=== PATIENT | male | born 1960 | race Caucasian/White ===

== ENCOUNTER 2020-08-03 14:43 | Outpatient (RCR) | payer BC, SELFPAY | END 2020-10-16 23:59 | LOC: IMMUN 14:43 | PROVIDERS: Visit Provider Family Medicine | DX: Z23 Encounter for immunization (principal) | CPT/HCPCS: 0001A; 0002A; 91300 ==

== ENCOUNTER 2021-05-24 08:58 | Emergency (ER) | payer BC, SELFPAY ==
[2021-05-24 08:59] VITALS: BP 142/88; PULSE 75; RESP 18; TEMP 36.6; O2SAT 99; BMI 32.5
--- NOTE | 2021-05-24 09:56 | EX.ED.UPPERE ---
HPI History of Present Illness Chief Complaint: Laceration Detail of Chief Complaint: Laceration left thumb 2 weeks ago now redness and drainage Informant: patient Occured/Mechanism Mechanism/Context: Yes injury Onset/Context/Timing Onset: Yesterday (Redness drainage left thumb) and Weeks (Injury occurred 2 days ago) Context: Sudden Onset Timing: Continuous Location: Left thumb Current Severity: Mild Maximum Severity: Mild Worsened by: Injury Relieved by: Nothing Associated Symptoms Associated Symptoms: Negative for Parasthesia, Weakness and Loss of Funtion Narrative Narrative: Patient is a 60-year-old enrmg-lzdy-lwtevaqc male who presents because of injury with possible infection left thumb. He was sent from the urgent care. He was told he needs IV antibiotics. He denies fever, chills night sweats. He states this is happened before. He sustained a laceration dorsal surface left thumb over the IP joint. He states that his skin peeled off and now it is red with predominantly serous drainage with slight greenish color. He denies fever, chills night sweats. He denies redness going towards his axilla. He denies pain in the elbow or axilla. He denies history of diabetes. He is not immune suppressed. He has no antibiotic allergies. Patient states he washes hands several times a day. Tetanus Immunization: 5-10 years Prior similar symptoms: Yes Recent Illness/Hospitalization: No [facility] Medical History Arthritis High cholesterol Home Medications doxycycline monohydrate 100 mg PO BID #10 capsule 05/24/21 [Rx Last Taken Unknown] magnesium 250 mg PO QHS 05/24/21 [History Last Taken Unknown] magnesium 500 mg PO BREAKFAST 05/24/21 [History Last Taken Unknown] Allergy/AdvReac Type Severity Reaction Status Date / Time procaine [From Novocain] Allergy Anaphylaxis Verified 05/24/21 09:03 Social History (Updated 05/24/21 @ 09:[address] Jhonatan Osborne MD) household members: spouse Smoking Status: Current every day smoker tobacco type: e-cigarettes substance use type: does not use ROS ROS ED Constitutional Constitutional ED: Denies chills, fever(s), subjective, sweats or weight loss Integumentary Reports rash; Denies abscess or Abrasions Neurologic Neurologic: Denies paresthesias or weakness Endocrine Endocrinology: Denies polydipsia, polyphagia or polyuria Hematologic/Lymphatic Hematologic/Lymphatic: Denies easy bleeding or easy bruising EXAM Physical Exam Const Vital Signs: 05/24/21 08:59 Temperature 97.9 F Temperature Source Temporal Pulse Rate 75 Respiratory Rate 18 Blood Pressure 142/88 H Blood Pressure Mean 106 Pulse Ox 99 Oxygen Delivery Method Room Air Positive well nourished, well developed and obese General Appearance ED: well developed and NAD Nutritional Appearance: obese HEENT normocephalic and atraumatic Eyes PERRL and EOMs intact bilaterally Resp normal respiratory effort Cardio regular rate and regular rhythm Extremity full ROM; Negative for normal to inspection Extremity Narrative: Patient has dyshidrotic eczema both hands. There is evidence of a recent laceration. The skin has desquamated over the dorsal surface left thumb involving the distal and midportion of the thumb. There is slight drainage noted. There is no lymphangitis. There is no epitrochlear extra lymphadenopathy. Presently there is no obvious drainage. It is inflamed. General Extremety ED: Yes other findings; Negative for edema General Extremity: other findings; Negative for edema Neuro oriented x3 and CN's II-XII intact bilaterally Sensorium / Orientation: alert Psych mental status grossly normal Skin Skin Narrative: Dermatologic exam documented/incorporated with extremity exam Lesions: No no lesions Rashes: No no rashes and rashes noted MDM MDM MDM Narrative Medical decision making narrative: Patient has dyshidrotic eczema with recent injury. This appears to be inflamed and suggestive of contact dermatitis. Since patient is describing colored drainage will place on short course of antibiotics and have him follow-up with his primary care physician for wound check in 2 to 3 days. He has been instructed use Eucerin cream because of his exceedingly dry skin/dyshidrotic eczema. Discharge Plan Triage Chief Complaint: Laceration ED Provider: Jhonatan Osborne Dx/Rx/DC Orders Clinical Impression: Cellulitis of left thumb, Dyshidrotic eczema Instructions: ED Atopic Dermatitis (Adult), ED Cellulitis Prescriptions: New doxycycline monohydrate 100 MG capsule 100 mg PO BID Qty: 10 RF: 0 No Action magnesium 500 mg Tablet 500 mg PO BREAKFAST RF: 0 magnesium 250 mg Tablet 250 mg PO QHS RF: 0 Primary Care Provider: Care Physician,No Primary Referrals: Oleghe,Efewongbe, MD [STAFF PHYSICIAN] - Care Physician,No Primary [Primary Care Provider] - Activity Restrictions/Additional Instructions: 1. Take antibiotics till gone 2. If you develop a red streak going towards your armpit return 3. Apply Eucerin lotion 3 times a day. Recommend wearing white gloves when you go to bed. Disposition Disposition: Home, Self Care
[2021-05-24] MEDS: Doxycycline 100 MG CAPSULE PO (10:20)
== END 2021-05-24 10:21 | disposition home or self-care (01) ==
PROVIDERS: Emergency Provider Emergency Medicine; Visit Provider Emergency Medicine
DX: L03.012 Cellulitis of left finger (principal); L30.1 Dyshidrosis [pompholyx]; F17.290 Nicotine dependence, other tobacco product, uncomplicated; E66.9 Obesity, unspecified
CPT/HCPCS: 99283

== ENCOUNTER 2022-10-04 07:23 | Inpatient (IN) | payer BC, SELFPAY ==
[2022-10-04] VITALS (13 sets, daily range): BP systolic 116–162; BP diastolic 60–104; PULSE 54–81; RESP 14–20; TEMP 36.4–36.9; O2SAT 96–100; BMI 34.4
--- NOTE | 2022-10-04 07:33 | EKG12_ITS ---
Test Reason : CP Blood Pressure : / mmHG Vent. Rate : 076 BPM Atrial Rate : 076 BPM P-R Int : 180 ms QRS Dur : 086 ms QT Int : 370 ms P-R-T Axes : 068 034 042 degrees QTc Int : 416 ms Normal sinus rhythm Low voltage QRS Borderline ECG Confirmed by CHARLES BATES, TICO ([id number]), editor farm journal REN CHRISTY ([id number]) on 10/07/2022 10:28:11 AM Referred By: Confirmed By:TICO SOTO MD
--- NOTE | 2022-10-04 07:34 | RAD_ITS ---
HISTORY: chest pain. TECHNIQUE: XR Chest 2 Views. COMPARISON: None. FINDINGS: CARDIOMEDIASTINAL BORDERS: Cardiac silhouette within normal limits in size. Mediastinal contour unremarkable. LUNGS: Radiographically clear. PLEURA: No pleural effusion or pneumothorax seen. OSSEOUS STRUCTURES: Unremarkable. RAD/Chest PA and Lateral IMPRESSION: No acute cardiopulmonary process identified. Electronically Signed: Svetlana Al MD at 8:13 EDT ,
--- NOTE | 2022-10-04 07:34 | ED.VIS.CHEST ---
HPI History of Present Illness Chief Complaint: Chest Pain Detail of Chief Complaint: Anterior upper mid chest pressure Informant: patient Onset/Context/Timing Onset: Hours (0.75) Activity at onset: sudden Timing: Continuous Quality: Positive for Pressure Location: - (Central upper anterior chest with radiation to to the left shoulder and arm and discomfort in the left wrist) Current Severity: Mild Maximum Severity: Moderate Worsened By: Nothing Relieved By: Nothing Associated Symptoms: Positive for Nausea; Negative for Vomiting, Diaphoresis (Patient states he felt warm but was not diaphoretic.), Dyspnea, Cough, Fever, Lightheadedness, Acid Reflux or Palpitations Narrative Narrative: Patient is a 62-year-old male with history of hypercholesterolemia who was a smoker. He quit 10 years ago. He presents with anterior upper central chest discomfort radiating to left shoulder and arm. The discomfort in his left upper extremity is described as aching. He also has numbness in his left wrist. He did report nausea without diaphoresis, shortness of breath. Patient denies prior episode. Patient denies dyspnea or chest discomfort the preceding 1 to 2 weeks. Patient denies recent upper respiratory tract infectious symptoms. Patient denies history of VTE and has no risk factors. Denies leg pain, swelling discoloration. He denies symptoms of claudication. He denies epigastric pain, black or maroon-colored stool. He denies history of hiatal hernia, reflux or peptic ulcer disease. He states his grandpa father on the operating table having cataract surgery at the age of 80 and father of [place] at the age of 67. Prior Similar Symptoms: No Recent Illness/Hospitalization: No CVD Risk Factors: Positive for Hypercholesterolemia; Negative for Hypertension, Diabetes, Family History 1' </=55 or Smoking (Patient did quit 10 years ago.) PE Risk Factors: Negative for Recent Travel/Surgery, Recent Immobilization, Prior DVT or PE, Cancer or OCP + Smoking + >/=35 TAD Risk Factors: Negative for Marfan's Syndrome, Hypertension or Family History PFSH PFSH Medical History Arthritis Diverticulosis of sigmoid colon Hypercholesterolemia Tobacco user Home Medications doxycycline monohydrate 100 mg capsule 100 mg PO BID #10 CAPSULES 05/24/21 [Rx Last Taken Unknown] magnesium 250 mg tablet 250 mg PO QHS 05/24/21 [History Last Taken Unknown] magnesium 500 mg tablet 500 mg PO BREAKFAST 05/24/21 [History Last Taken Unknown] atorvastatin 10 mg tablet 10 mg PO DAILY 10/04/22 [History Last Taken Unknown] tobramycin 0.3 %-dexamethasone 0.1 % eye drops,suspension drp 10/04/22 [History Last Taken Unknown] Allergy/AdvReac Type Severity Reaction Status Date / Time procaine [From Novocain] Allergy Anaphylaxis Verified 10/04/22 07:26 Family History Grandfather Myocardial infarction Father Myocardial infarction Social History (Updated 10/04/22 @ 14:[address] Irma Guy DO) household members: spouse housing: house current occupational status: retired Smoking Status: Current every day smoker tobacco type: e-cigarettes how long ago did patient quit smoking: Used to smoke 2 packs of regular cigarettes every day up until about 10 yea alcohol intake: never substance use type: does not use ROS ROS ED Constitutional Constitutional ED: Denies chills, fever(s), subjective, sweats or weight loss Eyes Eyes: Denies blurry vision, change in vision or diplopia ENT ENT ED: Denies ear pain, rhinorrhea or sore throat Cardiovascular Cardiovascular: Reports as per HPI; Denies orthopnea or paroxysmal nocturnal dyspnea Respiratory/Chest Respiratory/Chest: Denies cough, dyspnea, dyspnea on exertion, orthopnea or paroxysmal nocturnal dyspnea Gastrointestinal Gastrointestinal: Denies abdominal pain, diarrhea, melena or vomiting Genitourinary Genitourinary ED: Denies dysuria, hematuria or urinary frequency Musculoskeletal Musculoskeletal: Denies arthralgias, back pain, myalgias or neck pain Integumentary Denies rash Neurologic Neurologic: Denies headache(s), paresthesias or weakness Psychiatric Psychiatric: Denies anxiety or depression Hematologic/Lymphatic Hematologic/Lymphatic: Denies easy bleeding or easy bruising EXAM Physical Exam Const Vital Signs: 10/04/22 07:25 10/04/22 07:40 10/04/22 08:20 Temperature 97.8 F Temperature Source Temporal Pulse Rate 81 Respiratory Rate 18 Blood Pressure 162/104 H 141/93 H Blood Pressure Mean 123 109 Pulse Ox 97 99 Oxygen Delivery Method Room Air Room Air 10/04/22 08:57 10/04/22 09:10 10/04/22 10:51 Temperature Temperature Source Pulse Rate 65 66 57 L Respiratory Rate 17 16 14 Blood Pressure 139/86 H 139/86 H 152/96 H Blood Pressure Mean 103 103 114 Pulse Ox 99 99 99 Oxygen Delivery Method Room Air Room Air Room Air 10/04/22 11:02 10/04/22 12:00 10/04/22 13:00 Temperature Temperature Source Pulse Rate 62 80 62 Respiratory Rate 17 20 H 18 Blood Pressure 152/96 H 119/60 124/83 H Blood Pressure Mean 114 79 96 Pulse Ox 100 99 Oxygen Delivery Method Room Air Room Air Most recent blood pressure is markedly better than time of arrival. Positive well nourished, well developed and obese; Negative for cachectic, contractures or unkempt General Appearance ED: well developed and NAD; Negative for unkempt, cachectic, contractures or pallor Nutritional Appearance: obese; Negative for cachectic HEENT Reports moist mucous membranes HEENT Narrative: Nares patent. Mucosa moist. Posterior pharynx unremarkable. normocephalic and atraumatic Eyes PERRL and EOMs intact bilaterally Eyes Narrative: She has evidence of conjunctivitis on the left. There is also evidence of what appears to be contact dermatitis periorbital region. There is no evidence or concern for preseptal cellulitis or orbital cellulitis. Patient states she was initially seen at urgent care treated with antibiotic and recently saw his filling separator who prescribed tobramycin and prednisolone. General Eye ED: Negative for pale conjunctiva or scleral icterus Neck no lymphadenopathy, supple and no JVD Chest Wall inspection of chest normal and palpation of chest normal Resp normal respiratory effort and clear to auscultation bilaterally Cardio regular rate, regular rhythm, S1 normal heart sound, S2 normal heart sound and no murmurs Peripheral Pulses: brachial pulses present bilateral, radial pulses present bilateral and dorsalis pedis pulses present bilateral 1+ GI normal to inspection, nondistended, normoactive bowel sounds, soft to palpation, non-tender, non-distended and no masses; Negative for hepatosplenomegaly Back/Spine no CVA tenderness Extremity normal to inspection Extremity Narrative: There is no asymmetry, swelling, discoloration, leg vein distention, palpable cords or tenderness along the distribution of the deep venous system. Neuro oriented x3 and CN's II-XII intact bilaterally Sensorium / Orientation: awake and alert Psych mental status grossly normal Appearance: Negative for unkempt Skin no rashes or lesions noted and no wounds General Skin Exam: Negative for jaundice or pallor Heart Score History: Moderately Suspicious ECG: Normal Age: >45 - <65 years Risk Factors: 1 or 2 Risk Factors Score: 3 MDM MDM MDM Narrative Medical decision making narrative: Differential diagnosis would include cardiac versus noncardiac etiology of his pain. Noncardiac etiology would be hiatal hernia, reflux, peptic ulcer disease, pulmonary disease. Will obtain EKG, troponin, BMP to assess renal function and glucose, CBC to assess H&H and chest x-ray to assess cardiac size silhouette, lung parenchyma and mediastinum. Blood pressure is noted to be elevated. Will observe and follow. History & Record Review Additional record(s) reviewed:: Prior outpatient record (Outside records for diverticulitis.), Prior ED visit (Prior ER visit for cellulitis.) and Prior labs Lab Data Attestation: I reviewed the patient's lab results. Lab results narrative: CBC is unremarkable. Basic metabolic panel is unremarkable. Glucose is slight elevated 130 with a normal CO2 and anion gap. First troponin is 6, which is normal. Second troponin is 42 however delta is 36. Patient was informed of test results. Hospitalist been paged for serial troponins and additional cardiac work-up. Patient is presently without pressure in his chest. Labs: Laboratory Results - last 24 hr 10/04/22 10/04/22 10/04/22 07:40 07:40 09:40 WBC 5.9 RBC 5.62 Hgb 17.3 H Hct 49.8 MCV 88.6 MCH 30.8 MCHC 34.7 RDW Std Deviation 43.7 RDW Coeff of Josr 13.5 Plt Count 268 MPV 9.1 Immature Gran % (Auto) 0.300 Neut % (Auto) 51.1 Lymph % (Auto) 31.6 [facility] % (Auto) 11.6 H Eos % (Auto) 4.4 Baso % (Auto) 1.0 Absolute Neuts (auto) 3.0 Absolute Lymphs (auto) 1.88 Nucleated RBC % 0 Sodium 140 Potassium 4.1 Chloride 108 H Carbon Dioxide 27.0 Anion Gap 5 BUN 19 H Creatinine 0.95 Est GFR (MDRD) Af Amer 104 Est GFR (MDRD) Non-Af 86 BUN/Creatinine Ratio 20.0 Glucose 130 H Calcium 9.2 Troponin I High Sens 6 42 10/04/22 13:30 WBC RBC Hgb Hct MCV MCH MCHC RDW Std Deviation RDW Coeff of Josr Plt Count MPV Immature Gran % (Auto) Neut % (Auto) Lymph % (Auto) [facility] % (Auto) Eos % (Auto) Baso % (Auto) Absolute Neuts (auto) Absolute Lymphs (auto) Nucleated RBC % Sodium Potassium Chloride Carbon Dioxide Anion Gap BUN Creatinine Est GFR (MDRD) Af Amer Est GFR (MDRD) Non-Af BUN/Creatinine Ratio Glucose Calcium Troponin I High Sens 222 H* Third troponin is elevated 222 which is abnormal. The hospitalist Dr. Guy was paged and Dr. Steward business banker on-call regarding anticoagulation heparin versus Lovenox. Patient will require cardiac catheterization versus stress test. Radiography Chest X-Ray - ED: 2 View (Independently reviewed interpreted by me at 0812 as unremarkable. Cardiac silhouette size normal. Perihilar region normal. Lung parenchyma is unremarkable. Osseous structures are unremarkable.) Diagnostic Testing: Clinical Impression(s) from Imaging Studies Chest X-Ray 10/04/22 07:34 IMPRESSION: No acute cardiopulmonary process identified. Electronically Signed: Svetlana Al MD at 8:13 EDT , EKG Initial EKG: Attestation: I personally reviewed and interpreted this EKG as follows: Interpretation: Sinus Rhythm (Rate is 76. There is low voltage noted. ND interval is 180 ms. Cures duration 86 ms. QT duration 370 ms axis is normal.) Treatment and Re-Evaluation :: Case was discussed with Dr. Guy. She asked when patient had something to eat. He has not eaten since last evening. She will call the stress lab to see if he can be stressed today. Dr. Guy spoke with Dr. Steward. Plan is 6-hour troponin. If 6-hour troponin is normal outpatient stress test otherwise patient will be admitted to the hospital. Patient was made aware of this. 6-hour troponin is at 1333 Critical Care Time Critical Care Time: Yes Critical care time (excluding procedures): 30-74 minutes (33 which included history, physical, documentation, discussion with patient and on several occasions, discussion with hospitalist twice, consultation with cardiology), Discussing w/Patient &/or Family/[employer], Discussing w/Consultants and Arranging Admission or Transfer Discharge Plan Dx/Rx/DC Orders Clinical Impression: Non-ST elevated myocardial infarction (non-STEMI), Chest pressure, Hypercholesterolemia, Blood pressure elevated without history of HTN Disposition Disposition: Acute Care Hospital [facility]
[2022-10-04] MEDS: Aspirin 81 MG TAB.CHEW 324 MG PO (07:50)
[2022-10-04 08:02] LABS: Absolute Lymphocyte Count 1.88 X10^3/uL (0.83-4.51); Basophil# 0.06 X10^3/uL; Eosinophil# 0.26 X10^3/uL; Eosinophils% 4.4 % (0-5); Hematocrit 49.8 % (40-54); Hemoglobin 17.3 g/dL (13.0-16.5); Lymphocyte # 1.88 X10^3/ul (0.83-4.51); Lymphocyte % 31.6 % (19-41); Mean Corp Hgb Conc 34.7 g/dL (32-36); Mean Corpuscular Hgb 30.8 pg (27.0-32.0); Mean Corpuscular Volume 88.6 fL (80-94); Mean Platelet Vol. 9.1 fl (6.2-12.0); Monocyte# 0.69 X10^3/uL; Monocyte% 11.6 % (0-10); NRBC Flagged by Analyzer 0 % (0-5); Neutrophil # 3.03 X10^3/uL (2.7-7.7); Neutrophil % 51.1 % (47-70); Platelet Count 268 K/mm3 (150-450); RBC Distribution Width CV 13.5 % (11.6-14.6); RBC Distribution Width SD 43.7 fl (35.1-43.9); Red Blood Count 5.62 M/mm3 (4.6-6.2); White Blood Count 5.9 K/mm3 (4.4-11.0)
[2022-10-04 09:09] LABS: Anion Gap 5 (5-15); BUN 19 mg/dL (7-18); Calcium,Total 9.2 mg/dL (8.5-10.1); Chloride 108 mmol/L (98-107); Creatinine, Serum 0.95 mg/dL (0.70-1.30); EST Glomerular Filtration Rate 86 mL/min (>60); Est Glom Filt Rate - Afr Amer 104 mL/min (>60); Glucose 130 mg/dL (74-106); Potassium 4.1 mmol/L (3.5-5.1); Sodium Level 140 mmol/L (136-145); Troponin-I HS (w/2H Reflex) 6 pg/mL (3.0-78.0)
[2022-10-04 09:50] LABS: Reflex Troponin-HS? (from REC) Y
[2022-10-04 10:18] LABS: Troponin-I HS 42 pg/mL (3.0-78.0)
--- NOTE | 2022-10-04 13:05 | EKG12_ITS ---
Test Reason : RECHECK Blood Pressure : / mmHG Vent. Rate : 055 BPM Atrial Rate : 055 BPM P-R Int : 182 ms QRS Dur : 084 ms QT Int : 416 ms P-R-T Axes : 089 031 033 degrees QTc Int : 397 ms Sinus bradycardia with marked sinus arrhythmia Otherwise normal ECG Confirmed by CHARLES BTAES, TICO ([id number]), communications editor REN CHRISTY ([id number]) on 10/07/2022 10:28:25 AM Referred By: Confirmed By:TICO SOTO MD
[2022-10-04 13:59] LABS: Troponin-I HS 222 pg/mL (3.0-78.0)
--- NOTE | 2022-10-04 14:22 | HP.PCM.HOS_ITS ---
HPI - General General Date of Admission: 10/04/22 Date of Service: 10/04/22 Chief Complaint: Chest pain HPI Narrative VARGAS CARPENTER, is a 62 M who presented to the emergency department at [facility] on 10/04/2022 complaining of chest pain. Patient reported he was sitting at his desk when he developed mid chest substernal chest pain with eventual radiation to his left shoulder and down his arm with discomfort to his wrist. It was associated with nausea but no vomiting. He indicated he felt warm but was not diaphoretic. He denies any associated shortness of breath. He has never had anything like this before and described the pain as an aching in nature. He has no personal history of cardiac disease but does admit to tobacco abuse and hyperlipidemia. He does have a family history of coronary disease in both his father and paternal grandfather. At the time of my evaluation he was chest pain-free. Vital signs on presentation showed a temperature of 97.8, heart rate 81, blood pressure 162/104, respiratory rate 18, oxygen saturations 99% on room air. His CBC was overall unremarkable other than erythrocytosis with a hemoglobin of 17.3. His chemistry panel showed a normal electrolytes normal renal function. Glucose was elevated at 130 he had only had a couple of coffee. His initial troponin was 7 with a repeat at troponin was found to be 222. EKG was normal sinus rhythm with normal intervals and no ST-T wave changes concerning for acute ischemia. His chest x-ray was unremarkable for any acute findings. We started him on Lovenox and will admit him to the PCU. He was given full dose aspirin emergency department. [facility] Medical History Arthritis Diverticulosis of sigmoid colon Hypercholesterolemia Tobacco user Home Medications doxycycline monohydrate 100 mg capsule 100 mg PO BID #10 CAPSULES 05/24/21 [Rx Last Taken Unknown] magnesium 250 mg tablet 250 mg PO QHS 05/24/21 [History Last Taken Unknown] magnesium 500 mg tablet 500 mg PO BREAKFAST 05/24/21 [History Last Taken Unknown] atorvastatin 10 mg tablet 10 mg PO DAILY 10/04/22 [History Last Taken Unknown] tobramycin 0.3 %-dexamethasone 0.1 % eye drops,suspension drp 10/04/22 [History Last Taken Unknown] Allergy/AdvReac Type Severity Reaction Status Date / Time procaine [From Novocain] Allergy Anaphylaxis Verified 10/04/22 07:26 Family History Grandfather Myocardial infarction Father Myocardial infarction no surgical history Social History (Updated 10/04/22 @ 14:[address] Irma Guy DO) household members: spouse housing: house current occupational status: retired Smoking Status: Current every day smoker tobacco type: e-cigarettes how long ago did patient quit smoking: Used to smoke 2 packs of regular cigarettes every day up until about 10 yea alcohol intake: never substance use type: does not use ROS Constitutional Constitutional: Denies anorexia, change in weight, chills, fatigue, fever(s), malaise, night sweats, weakness or other Eyes Eyes: Reports discharge from eye(s), erythema and eye pain; Denies blurry vision, change in eye color, change in vision, double vision, loss of vision or other ENT HEENT: Denies abnormal hearing, dysphagia, ear pain, epistaxis, headache(s), hea ring loss, nasal congestion, nasal discharge, post nasal drip, sinus pressure, sore throat or other Cardiovascular Cardiovascular: Reports chest pain; Denies claudication, dyspnea on exertion, edema, lightheadedness, orthopnea, palpitations, paroxysmal nocturnal dyspnea, rapid heart rate, syncope or other Respiratory/Chest Respiratory/Chest: Denies cough, dyspnea, excessive phlegm production, hemopt ysis, productive cough, shortness of breath at rest, shortness of breath with exertion, wheezing or other Gastrointestinal Gastrointestinal: Reports nausea; Denies abdominal pain, coffee ground emesis, constipation, diarrhea, dyspepsia, hematemesis, hematochezia, loose stools, melena, vomiting or other Genitourinary Genitourinary: Denies burning urination, difficulty urinating, dysuria, hematuria, nocturia, urinary frequency, urinary hesitancy, urinary incontinence, urinary urgency or other Musculoskeletal Musculoskeletal: Denies arthralgias, back pain, joint pain, joint stiffness, joint swelling, myalgias, neck pain or other Neurologic Neurologic: Denies abnormal gait, abnormal speech, confusion, disequilibrium, dizziness, focal weakness, headache(s), numbness, paresthesias, seizure-like activity, seizures, syncope, tingling, tremor(s) or other Psychiatric Psychiatric: Denies anxiety, depression, homicidal ideation, suicidal ideation or other Endocrine Endocrinology: Reports change in body appearance, cold intolerance, excessive sweating, heat intolerance, polydipsia, polyuria and other Hematologic/Lymphatic Hematologic/Lymphatic: Denies anemia, easy bleeding, easy bruising, lymphadenopathy or other Allergic/Immunologic Allergic/Immunologic: Denies rhinitis, hives, eczemia, asthma or other Vital Signs Vital Signs Vital Signs: 10/04/22 07:25 10/04/22 07:40 10/04/22 08:20 Temperature 97.8 F Temperature Source Temporal Pulse Rate 81 Respiratory Rate 18 Blood Pressure 162/104 H 141/93 H Blood Pressure Mean 123 109 Pulse Ox 97 99 Oxygen Delivery Method Room Air Room Air 10/04/22 08:57 10/04/22 09:10 10/04/22 10:51 Temperature Temperature Source Pulse Rate 65 66 57 L Respiratory Rate 17 16 14 Blood Pressure 139/86 H 139/86 H 152/96 H Blood Pressure Mean 103 103 114 Pulse Ox 99 99 99 Oxygen Delivery Method Room Air Room Air Room Air 10/04/22 11:02 10/04/22 12:00 10/04/22 13:00 Temperature Temperature Source Pulse Rate 62 80 62 Respiratory Rate 17 20 H 18 Blood Pressure 152/96 H 119/60 124/83 H Blood Pressure Mean 114 79 96 Pulse Ox 100 99 Oxygen Delivery Method Room Air Room Air Weight Weight: 115.3 kg Body Mass Index (BMI) 34.4 Physical Exam Const alert, oriented x3, no apparent distress and well nourished; Negative for average body habitus Constitutional Narrative: Obese, upper middle-aged, white male, sitting up in bed watching softball and television, appears comfortable and nontoxic General Appearance: cooperative HEENT normocephalic, head/scalp atraumatic, hearing grossly normal bilaterally and moist oral mucous membranes HEENT Narrative: Dentition is poor, Mallampati is 3, no thrush Eyes PERRL, EOMs intact bilaterally and conjunctivae normal Eyes Narrative: No scleral icterus Neck no lymphadenopathy, supple, no JVD and no carotid bruits Neck Narrative: Trachea midline, no thyroid enlargement or nodularity Resp normal respiratory effort, no retractions, no use of accessory muscles and clear to auscultation bilaterally Resp Narrative: Diminished diffusely but clear Auscultation: Negative for rales, rhonchi or wheezes Cardio regular rate, regular rhythm, S1 normal heart sound, S2 normal heart sound, no murmurs, no rub, no gallops and no clicks GI normal to inspection, nondistended, normoactive bowel sounds, soft to palpation and non-tender Extremity no clubbing, cyanosis or edema Extremity Narrative: Pedal pulses are 2+, radial pulses are 2+ Skin no rashes or lesions noted, no wounds, skin turgor normal, no jaundice, no petechiae and no mottling Neuro oriented x3, CN's II-XII intact bilaterally, moves all extremities and no focal motor deficits Sensorium / Orientation: awake, alert, oriented to person, oriented to place and oriented to time Speech: speech normal Motor Exam: strength 5/5 throughout Psych affect normal Psych Narrative: Very pleasant, appropriate Results Lab / Micro Data Attestation: I reviewed the patient's lab results. Result Diagrams: 10/04/22 07:40 10/04/22 07:40 Labs: Laboratory Results - last 24 hr 10/04/22 07:40: WBC 5.9, RBC 5.62, Hgb 17.3 H, Hct 49.8, MCV 88.6, MCH 30.8, MCHC 34.7, RDW Std Deviation 43.7, RDW Coeff of Josr 13.5, Plt Count 268, MPV 9.1, Immature Gran % (Auto) 0.300, Neut % (Auto) 51.1, Lymph % (Auto) 31.6, Ballard % (Auto) 11.6 H, Eos % (Auto) 4.4, Baso % (Auto) 1.0, Absolute Neuts (auto) 3.0, Absolute Lymphs (auto) 1.88, Nucleated RBC % 0 10/04/22 07:40: Sodium 140, Potassium 4.1, Chloride 108 H, Carbon Dioxide 27.0, Anion Gap 5, BUN 19 H, Creatinine 0.95, Est GFR (MDRD) Af Amer 104, Est GFR (MDRD) Non-Af 86, BUN/Creatinine Ratio 20.0, Glucose 130 H, Calcium 9.2, Troponin I High Sens 6 10/04/22 09:40: Troponin I High Sens 42 10/04/22 13:30: Troponin I High Sens 222 H* Radiology Impression Chest X-Ray 10/04/22 07:34 IMPRESSION: No acute cardiopulmonary process identified. Electronically Signed: Svetlana Al MD at 8:13 EDT , Assessment & Plan Assessment/Plan (1) Non-ST elevated myocardial infarction (non-STEMI): (2) Blood pressure elevated without history of HTN: (3) Hyperglycemia: (4) Erythrocytosis: PLAN: Plan NSTEMI -Cardiac enzymes trending up -Cycle enzymes -Start aspirin 81 mg daily -Metoprolol 25 mg p.o. twice daily -Start lisinopril 2.5 mg daily -Start Lovenox 1 mg/kg twice daily -Start atorvastatin 80 mg daily -Check hemoglobin A1c -Check lipid panel -Cardiac diet -Consult cardiology--> discussed with Dr. Steward likely heart catheterization on Thursday morning as long as patient remains medically stable as he is currently chest pain-free Elevated blood pressure -No history of hypertension -Start metoprolol and lisinopril as noted above -We will trend Hyperlipidemia -Patient is on this for statin and 10 mg daily -Check lipid panel -Start atorvastatin 80 mg daily with current events Hyperglycemia -No diagnosis of diabetes -Blood sugar this morning on lab at 7:30 AM was 130 -check hemoglobin A1c Erythrocytosis -Patient is a smoker suspect related to this -We will trend and monitor for hypoxia -It is conceivable that also patient has nondiagnosed obstructive sleep apnea Left eye infection -Continue outpatient eyedrops as previously prescribed Obesity -BMI 34.5 -Recommend weight loss next-complicates treatment, prognosis, outcomes Tobacco abuse -Patient vapes -Used to smoke 2 packs of cigarettes daily but has cut back dramatically in the last 10 years -Smoking cessation recommended and discussed on admission -Nicotine patch 14 mcg DVT prophylaxis -Lovenox 1 mg/kg SQ twice daily CODE STATUS Full code Charges/Coding Visit Charges Inpatient E&M: 56159 Init Hosp L3
--- NOTE | 2022-10-04 15:55 | ECHOCS_ITS ---
Reason For Study: CAD/ASHD Procedure This was a 2D Doppler, Color Flow transthoracic echocardiogram. Contrast injection was performed. Exam performed portable in patient room. Left Ventricle Normal LV size. Left ventricular systolic function is normal. The estimated ejection fraction is 60 %. Normal diastology for age. No regional wall motion abnormalities noted. Right Ventricle Normal RV size. Normal systolic function. Atria Normal left atrium. Normal right atrium. Mitral Valve Normal mitral valve. Trivial eccentric mitral valve insufficiency. Tricuspid Valve Normal tricuspid valve. Trivial tricuspid valve insufficiency. Aortic Valve The aortic valve is not well visualized. Pulmonic Valve The pulmonic valve is not well visualized. Great Vessels Normal aortic root. The pulmonary artery is normal size. Normal inferior vena cava. Pericardium/Pleural No pericardial effusion. Medication Diluted definity 2.5ml given slow IV push to enhance endocardial definition. MMode/2D Measurements & Calculations LVIDd: 5.7 cm IVSd: 0.85 cm Ao root diam: 3.2 cm LVIDs: 3.1 cm LVPWd: 0.83 cm RVDd: 3.7 cm FS: 45.3 % LAV(MOD-bp): 45.2 ml LVAd ap4: 27.6 cm2 SV(MOD-sp4): 48.9 ml LAV(MOD-bp) Indexed: 19.2 ml/m2 LVLd ap4: 7.9 cm LAV(MOD-sp2): 51.3 ml EDV(MOD-sp4): 78.5 ml LAV(MOD-sp4): 34.7 ml EDV(sp4-el): 81.8 ml LVAs ap4: 15.3 cm2 LVLs ap4: 6.5 cm ESV(MOD-sp4): 29.6 ml ESV(sp4-el): 30.9 ml EF(MOD-sp4): 62.3 % EF(sp4-el): 62.3 % SV(sp4-el): 51.0 ml LA A4 area: 14.6 cm2 LA dimension(2D): 3.7 cm RA A4 area: 14.3 cm2 Time Measurements MV dec time: 0.32 sec Doppler Measurements & Calculations MV E max shahram: 65.1 cm/sec Lat Peak E' Shahram: 11.8 cm/sec Med Peak E' Shahram: 7.5 cm/sec MV A max shahram: 50.1 cm/sec E/E' lat: 5.5 E/E' med: 8.7 MV E/A: 1.3 MV dec slope: 204.8 cm/sec2 Ao V2 max: 116.3 cm/sec LV V1 max: 115.0 cm/sec Ao max P.4 mmHg LV V1 max P.3 mmHg Ao V2 mean: 88.1 cm/sec Ao mean P.3 mmHg Ao V2 VTI: 26.1 cm PA V2 max: 147.4 cm/sec PI end-d shahram: 129.0 cm/sec TR max shahram: 181.8 cm/sec TR max P.2 mmHg ECHO/Echo Complete W/ Contrast Interpretation Summary Normal LV size. Left ventricular systolic function is normal. The estimated ejection fraction is 60 %. Contrast injection was performed. Ordering Physician: Irma Guy Referring Physician: Rylee Boss Performed By: Carmen Pandya, SCOTT, RVT
[2022-10-04] MEDS: Tobram/Dexam 2.5ML OPTH.BTL 1 DRP LEFT EYE ×2 (16:41→21:48)
[2022-10-04] MEDS: Enoxaparin 120 MG/0.8 ML Syringe SC (16:43)
[2022-10-04 20:08] LABS: Troponin-I HS 217 pg/mL (3.0-78.0)
[2022-10-04] MEDS: 0.9% Saline Lock 10 ML Syringe IV (21:48)
[2022-10-04] MEDS: Atorvastatin Calcium 80 MG Tablet PO (21:48)
[2022-10-04] MEDS: Metoprolol Tartrate 25 MG Tablet 12.5 MG PO (22:30)
[2022-10-05] VITALS (7 sets, daily range): BP systolic 107–126; BP diastolic 56–85; PULSE 49–64; RESP 18; TEMP 35.8–36.7; O2SAT 98
[2022-10-05] MEDS: Enoxaparin 120 MG/0.8 ML Syringe SC ×3 (00:59→21:26)
[2022-10-05 05:32] LABS: Hematocrit 49.8 % (40-54); Hemoglobin 16.4 g/dL (13.0-16.5); Mean Corp Hgb Conc 32.9 g/dL (32-36); Mean Corpuscular Hgb 29.9 pg (27.0-32.0); Mean Corpuscular Volume 90.9 fL (80-94); Platelet Count 255 K/mm3 (150-450); RBC Distribution Width CV 13.4 % (11.6-14.6); RBC Distribution Width SD 45.1 fl (35.1-43.9); Red Blood Count 5.48 M/mm3 (4.6-6.2); White Blood Count 6.9 K/mm3 (4.4-11.0)
[2022-10-05 06:06] LABS: ALB/GLOB Ratio 1.1 RATIO (0.9-2.4); AST(SGOT) 24 U/L (15-37); Alanine Aminotransfer ALT/SGPT 25 U/L (16-61); Albumin, Serum 3.3 g/dL (3.2-5.0); Alkaline Phosphatase 59 U/L (45-117); Anion Gap 5 (5-15); BUN 16 mg/dL (7-18); BUN/Creat Ratio 18.2 RATIO (10-20); Calcium,Total 8.9 mg/dL (8.5-10.1); Chloride 108 mmol/L (98-107); Cholesterol 152 mg/dL (200); Creatinine, Serum 0.88 mg/dL (0.70-1.30); EST Glomerular Filtration Rate 94 mL/min (>60); Est Glom Filt Rate - Afr Amer 114 mL/min (>60); Estimated Creatinine Clearance 97.98 ml/min; Globulin 3.1 g/dL (2.2-4.2); Glucose 109 mg/dL (74-106); High Density Lipoprotein 33 mg/dL; Magnesium 2.2 mg/dL (1.6-2.6); Phosphorus 2.9 mg/dL (2.5-4.9); Potassium 4.2 mmol/L (3.5-5.1); Protein, Total 6.4 g/dL (6.4-8.2); Sodium Level 140 mmol/L (136-145); Thyroid Stim Hormone (TSH) 1.31 uIU/mL (0.358-3.74); Triglycerides 82 mg/dL; Very Low Density Lipoprotein 16 mg/dL (5-40)
[2022-10-05] MEDS: Aspirin E.C. 81 MG Tablet PO (07:17)
[2022-10-05] MEDS: Tobram/Dexam 2.5ML OPTH.BTL 1 DRP LEFT EYE ×4 (07:17→21:26)
[2022-10-05 08:18] LABS: Hemoglobin A1c 5.5 % (3.8-5.6)
--- NOTE | 2022-10-05 09:12 | CON.PCM.CA_ITS ---
Assessment & Plan Assessment/Plan (1) Unstable angina pectoris: PLAN: Patient resents with new onset chest discomfort which is suggestive of unstable angina. My recommendation is for us to proceed with a left heart catheterization. The risk benefits alternatives have been discussed with him he understands and agrees to proceed. In the meantime he will be started on aspirin low-dose beta-olu as well as high intensity statin in addition to the Lovenox. He will have an echocardiogram to assess his ventricular function and depending on the findings further recommendations made. Thank you for allowing me to participate in the care of your patient. Please don't hesitate to call if any issues arise. HPI Consult Data Date of Consult: 10/05/22 HPI Narrative HPI Narrative: VARGAS CARPENTER, is a 62 M who presents to the emergency department at [facility] on 10/04/2022 complaining of chest pain.? Patient reported he was sitting at his desk when he developed mid chest substernal chest pain with eventual radiation to his left shoulder and down his arm with discomfort to his wrist.? It was associated with nausea but no vomiting.? He indicated he felt warm but was not diaphoretic.? He denies any associated shortness of breath.? He has never had anything like this before and described the pain as an aching in nature.? He has no personal history of cardiac disease but does admit to tobacco abuse and hyperlipidemia.? He does have a family history of coronary disease in both his father and paternal grandfather.? At the time of my evaluation he was chest pain-free. Vital signs on presentation showed a temperature of 97.8, heart rate 81, blood pressure 162/104, respiratory rate 18, oxygen saturations 99% on room air.? His CBC was overall unremarkable other than erythrocytosis with a hemoglobin of 17.3.? His chemistry panel showed a normal electrolytes normal renal function.? His initial troponin was 7 with a repeat at troponin was found to be 222 .? EKG was normal sinus rhythm with normal intervals and no ST-T wave changes concerning for acute ischemia.? His chest x-ray was unremarkable for any acute findings. [facility] Medical History Arthritis Diverticulosis of sigmoid colon Hypercholesterolemia Tobacco user Home Medications magnesium 250 mg tablet 250 mg PO QHS health maintenance 05/24/21 [History Last Taken 10/01/22 21:00] atorvastatin 10 mg tablet 10 mg PO DAILY cholesterol 10/04/22 [History Last Taken 10/01/22] tobramycin 0.3 %-dexamethasone 0.1 % eye drops,suspension 1 drp LEFT EYE 4X/DAY eye infection 10/04/22 [History Last Taken 10/04/22 12:00] Allergy/AdvReac Type Severity Reaction Status Date / Time procaine [From Novocain] Allergy Anaphylaxis Verified 10/04/22 07:26 Family History Grandfather Myocardial infarction Father Myocardial infarction Surgical History no surgical history Social History household members: spouse housing: house current occupational status: retired Smoking Status: Current every day smoker tobacco type: e-cigarettes how long ago did patient quit smoking: Used to smoke 2 packs of regular cigarettes every day up until about 10 yea alcohol intake: never substance use type: does not use ROS Constitutional Constitutional: Denies fever(s) or weight loss Eyes Eyes: Reports systems reviewed and no addt'l complaints, except as documented ENT HEENT: Reports systems reviewed and no addt'l complaints, except as documented Cardiovascular Cardiovascular: Denies chest pain at rest, chest pain with activity, dyspnea at rest, dyspnea on exertion, edema, palpitations or paroxysmal nocturnal dyspnea Respiratory/Chest Respiratory/Chest: Denies dyspnea on exertion, productive cough, shortness of breath at rest or shortness of breath with exertion Gastrointestinal Gastrointestinal: Denies change in bowel habits, nausea, vomiting or weight changes Genitourinary Genitourinary: Denies difficulty urinating Musculoskeletal Musculoskeletal: Denies joint stiffness or muscle weakness Integumentary Integumentary: Denies lesions Neurologic Neurologic: Denies dizziness or syncope Psychiatric Psychiatric: Denies anxiety Endocrine Endocrinology: Denies excessive sweating or fatigue Hematologic/Lymphatic Hematologic/Lymphatic: Denies anemia Allergic/Immunologic Allergic/Immunologic: Denies seasonal rhinorrhea Physical Exam Const alert, oriented x3 and no apparent distress General Appearance: cooperative HEENT hearing grossly normal bilaterally Head and Scalp: atraumatic Eyes EOMs intact bilaterally Neck General: normal visual inspection Chest inspection of chest normal and palpation of chest normal Resp normal respiratory effort Auscultation: clear to auscultation bilaterally Cardio regular rate, regular rhythm, S1 normal heart sound and S2 normal heart sound Jugular Venous Distention: JVD GI normal to inspection, nondistended, normoactive bowel sounds Extremity normal capillary refill and no pedal edema Peripheral Pulses: Yes pulses 2+ throughout and femoral pulses present Skin no rashes or lesions noted Neuro oriented x3 and CN's II-XII intact bilaterally Psych Appearance: grossly normal and appropriate Risk Stratification Risk Stratification Applicable: Yes Age >/= 65: No >/= 3 CAD Risk Factors (HTN, HLD, DM, family hx of CAD, or current smoker): Yes Aspirin Use in the Past 7 Days: No Severe Angina (>/= episodes in 24 hours): No EKG ST Changes >/= 0.5mm: No Positive Cardiac Marker: Yes SAMANTHA Risk Stratification Score: 2 SAMANTHA % Risk: 8% Risk Objective Data Vital Signs: Vital Signs Temp Pulse Resp BP Pulse Ox O2 Del Method 97.8 F 49 L 18 111/78 98 Room Air 10/05/22 05:15 10/05/22 05:15 10/05/22 05:15 10/05/22 05:15 10/05/22 05:15 10/05/22 05:20 Oxygen Delivery Method Room Air Weight: 253 lb 8.505 oz Body Mass Index (BMI) 34.4 Intake & Output: Intake and Output for Last 24 Hours 10/03/22 10/04/22 10/05/22 23:59 23:59 23:59 Intake Total 120 / 120 Balance 120 / 120 Lab / Micro Data Result Diagrams: 10/05/22 05:05 10/05/22 05:05 Labs: Laboratory Results - last 24 hr 10/04/22 09:40: Troponin I High Sens 42 10/04/22 13:30: Troponin I High Sens 222 H* 10/04/22 19:30: Troponin I High Sens 217 H* 10/05/22 05:05: Hemoglobin A1c 5.5 10/05/22 05:05: WBC 6.9, RBC 5.48, Hgb 16.4, Hct 49.8, MCV 90.9, MCH 29.9, MCHC 32.9 D, RDW Std Deviation 45.1 H, RDW Coeff of Josr 13.4, Plt Count 255, MPV 9.0 10/05/22 05:05: Sodium 140, Potassium 4.2, Chloride 108 H, Carbon Dioxide 27.0, Anion Gap 5, BUN 16, Creatinine 0.88, Estim Creat Clear Calc 97.98, Est GFR (MDRD) Af Amer 114, Est GFR (MDRD) Non-Af 94, BUN/Creatinine Ratio 18.2, Glucose 109 H, Calcium 8.9, Phosphorus 2.9, Magnesium 2.2, Total Bilirubin 0.90, AST 24, ALT 25, Alkaline Phosphatase 59, Total Protein 6.4, Albumin 3.3, Globulin 3.1, Albumin/Globulin Ratio 1.1, Triglycerides 82, Cholesterol 152, LDL Cholesterol 103, VLDL Cholesterol 16, HDL Cholesterol 33 L, TSH 1.31 Cardiology Labs/Tests 10/05/22 05:05: Hemoglobin A1c 5.5 10/05/22 05:05: WBC 6.9, RBC 5.48, Hgb 16.4, Hct 49.8, MCV 90.9, MCH 29.9, MCHC 32.9 D, Plt Count 255, MPV 9.0 10/05/22 05:05: Sodium 140, Potassium 4.2, Chloride 108 H, Carbon Dioxide 27.0, Anion Gap 5, BUN 16, Creatinine 0.88, Est GFR (MDRD) Af Amer 114, Est GFR (MDRD) Non-Af 94, BUN/Creatinine Ratio 18.2, Glucose 109 H, Calcium 8.9, Phosphorus 2.9, Magnesium 2.2, Total Bilirubin 0.90, Triglycerides 82, Cholesterol 152, LDL Cholesterol 103, VLDL Cholesterol 16, HDL Cholesterol 33 L Rhythm: EKG: ECHO: Stress Test: Cardiac Cath: PCI: CT Surgery: Holter monitor: EPS: PPM: CXR: Chest CT Scan:
[2022-10-05] MEDS: Lisinopril 2.5 MG Tablet PO (10:03)
[2022-10-05] MEDS: Metoprolol Tartrate 25 MG Tablet 12.5 MG PO (10:04)
--- NOTE | 2022-10-05 12:50 | PCM.PN.HOSP ---
Reason for Visit Reason for Visit: Chest pain Subjective Subjective No chest pain overnight. States the bed is uncomfortable but feeling okay otherwise. Plans on watching car races today. Objective Data Objective Data Vital Signs: Vital Signs Temp Pulse Resp BP Pulse Ox O2 Del Method 98.0 F 53 L 18 116/66 98 Room Air 10/05/22 09:40 10/05/22 10:04 10/05/22 09:40 10/05/22 10:04 10/05/22 09:40 10/05/22 09:40 Oxygen Delivery Method Room Air Weight: 115 kg Body Mass Index (BMI) 34.4 Intake & Output: Intake and Output for Last 24 Hours 10/03/22 10/04/22 10/05/22 23:59 23:59 23:59 Intake Total 120 / 120 240 / 240 Balance 120 / 120 240 / 240 Lab / Micro Data Result Diagrams: 10/05/22 05:05 10/05/22 05:05 Labs: Laboratory Results - last 24 hr 10/04/22 13:30: Troponin I High Sens 222 H* 10/04/22 19:30: Troponin I High Sens 217 H* 10/05/22 05:05: Hemoglobin A1c 5.5 10/05/22 05:05: WBC 6.9, RBC 5.48, Hgb 16.4, Hct 49.8, MCV 90.9, MCH 29.9, MCHC 32.9 D, RDW Std Deviation 45.1 H, RDW Coeff of Josr 13.4, Plt Count 255, MPV 9.0 10/05/22 05:05: Sodium 140, Potassium 4.2, Chloride 108 H, Carbon Dioxide 27.0, Anion Gap 5, BUN 16, Creatinine 0.88, Estim Creat Clear Calc 97.98, Est GFR (MDRD) Af Amer 114, Est GFR (MDRD) Non-Af 94, BUN/Creatinine Ratio 18.2, Glucose 109 H, Calcium 8.9, Phosphorus 2.9, Magnesium 2.2, Total Bilirubin 0.90, AST 24, ALT 25, Alkaline Phosphatase 59, Total Protein 6.4, Albumin 3.3, Globulin 3.1, Albumin/Globulin Ratio 1.1, Triglycerides 82, Cholesterol 152, LDL Cholesterol 103, VLDL Cholesterol 16, HDL Cholesterol 33 L, TSH 1.31 Physical Exam Const alert, oriented x3, no apparent distress and well nourished; Negative for average body habitus Constitutional Narrative: Obese, upper middle-aged, white male, sitting up in bed car racing, appears comfortable and nontoxic General Appearance: cooperative HEENT normocephalic, head/scalp atraumatic, hearing grossly normal bilaterally and moist oral mucous membranes Resp normal respiratory effort, no retractions, no use of accessory muscles and clear to auscultation bilaterally Resp Narrative: Diminished diffusely but clear Auscultation: Negative for rales, rhonchi or wheezes Cardio regular rate, regular rhythm, S1 normal heart sound, S2 normal heart sound, no murmurs, no rub, no gallops and no clicks GI normal to inspection, nondistended, normoactive bowel sounds, soft to palpation and non-tender Extremity no clubbing, cyanosis or edema Extremity Narrative: Pedal pulses are 2+, radial pulses are 2+ Neuro oriented x3, moves all extremities and no focal motor deficits Speech: speech normal Psych affect normal Psych Narrative: Very pleasant, appropriate Assessment & Plan Assessment/Plan (1) Non-ST elevated myocardial infarction (non-STEMI): (2) Blood pressure elevated without history of HTN: (3) Hyperglycemia: (4) Erythrocytosis: PLAN: Plan NSTEMI -Cardiac enzymes trending up -Start aspirin 81 mg daily -Continue metoprolol 12.5 mg p.o. twice daily -Continue lisinopril 2.5 mg daily -Continue Lovenox 1 mg/kg twice daily -Continue atorvastatin 80 mg daily -Hemoglobin A1c is 5.5 -Total cholesterol 152/LDL 103/HDL 33/triglycerides 82 -Cardiac diet -Cardiology following-appreciate input--> plan is for cardiac catheterization on Thursday morning Elevated blood pressure -No history of hypertension -Continue metoprolol and lisinopril as noted for cardiac purposes and monitor blood pressure -We will trend Hyperlipidemia -Patient is on this for statin and 10 mg daily--> continue increased dose of 80 mg daily -Total cholesterol 152/LDL 103/HDL 33/triglycerides 82 Hyperglycemia -Patient not diabetic -Hemoglobin A1c was 5.5 Erythrocytosis -Resolved Left eye infection -Continue outpatient eyedrops as previously prescribed -We will add oral Augmentin as it appears there is a periocular cellulitis forming Obesity -BMI 34.5 -Recommend weight loss next-complicates treatment, prognosis, outcomes Tobacco abuse -Patient vapes -Used to smoke 2 packs of cigarettes daily but has cut back dramatically in the last 10 years -Smoking cessation recommended and discussed on admission -Nicotine patch 14 mcg DVT prophylaxis -Lovenox 1 mg/kg SQ twice daily CODE STATUS Full code Charges/Coding Visit Charges Inpatient E&M: 12390 Subs Hosp L2
[2022-10-05] MEDS: 0.9% Saline Lock 10 ML Syringe IV (14:15)
[2022-10-05] MEDS: Amox/Clavulanate 875 MG Tablet PO ×2 (14:20→21:26)
[2022-10-05] MEDS: Atorvastatin Calcium 80 MG Tablet PO (21:26)
[2022-10-06] VITALS (8 sets, daily range): BP systolic 92–120; BP diastolic 53–78; PULSE 49–53; RESP 16–18; TEMP 36.4–36.7; O2SAT 96–99
[2022-10-06] MEDS: 0.9% Normal Saline 1,000 ML 15 ML IV (05:19)
[2022-10-06] MEDS: Aspirin E.C. 81 MG Tablet PO (09:17)
[2022-10-06] MEDS: Tobram/Dexam 2.5ML OPTH.BTL 1 DRP LEFT EYE ×4 (09:17→20:42)
[2022-10-06] MEDS: Enoxaparin 120 MG/0.8 ML Syringe SC ×2 (09:17→20:41)
[2022-10-06] MEDS: Amox/Clavulanate 875 MG Tablet PO ×2 (09:17→20:43)
--- NOTE | 2022-10-06 10:08 | PN.HOSP_ITS ---
Reason for Visit Reason for Visit: Chest pain Subjective Subjective Patient feeling well. No issues overnight. aircraft electronics technical officer at bedside starting echocardiogram. States his eye is feeling better with the addition of systemic antibiotics. Objective Data Objective Data Vital Signs: Vital Signs Temp Pulse Resp BP Pulse Ox O2 Del Method 97.5 F L 49 L 18 100/59 L 99 Room Air 10/06/22 08:50 10/06/22 08:50 10/06/22 08:50 10/06/22 08:50 10/06/22 08:50 10/06/22 08:50 Oxygen Delivery Method Room Air Weight: 115 kg Body Mass Index (BMI) 34.4 Intake & Output: Intake and Output for Last 24 Hours 10/04/22 10/05/22 10/06/22 23:59 23:59 23:59 Intake Total 120 / 120 720 / 1040 480 / 480 Balance 120 / 120 720 / 1040 480 / 480 Lab / Micro Data Result Diagrams: 10/05/22 05:05 10/05/22 05:05 Physical Exam Const alert, oriented x3, no apparent distress and well nourished; Negative for average body habitus Constitutional Narrative: Obese, upper middle-aged, white male, lying in bed, watching television, medical instrument technician at bedside getting ready to perform echocardiogram,, appears comfortable and nontoxic General Appearance: cooperative HEENT normocephalic, head/scalp atraumatic and moist oral mucous membranes HEENT Narrative: Mallampati 3, no thrush Eyes Eyes Narrative: Patient with some mild left eye surrounding erythema which seems to be improved with addition of Resp normal respiratory effort, no retractions, no use of accessory muscles and clear to auscultation bilaterally Resp Narrative: Diminished diffusely but clear Auscultation: Negative for rales, rhonchi or wheezes Cardio regular rate, regular rhythm, S1 normal heart sound, S2 normal heart sound, no murmurs, no rub, no gallops and no clicks GI normal to inspection, nondistended, normoactive bowel sounds, soft to palpation and non-tender Extremity no clubbing, cyanosis or edema Neuro oriented x3, moves all extremities and no focal motor deficits Sensorium / Orientation: awake, alert, oriented to person, oriented to place and oriented to time Speech: speech normal Psych affect normal Psych Narrative: Very pleasant, appropriate Assessment & Plan Assessment/Plan (1) Non-ST elevated myocardial infarction (non-STEMI): (2) Blood pressure elevated without history of HTN: (3) Hyperglycemia: (4) Erythrocytosis: PLAN: Plan NSTEMI -Cardiac enzymes trended up -Start aspirin 81 mg daily -Continue metoprolol 12.5 mg p.o. twice daily--> hold parameter is added as his blood pressure has not been high and his heart rate has been low in the evening when he is sleeping -Discontinue lisinopril 2.5 mg daily--> blood pressures are not elevated -Continue Lovenox 1 mg/kg twice daily -Continue atorvastatin 80 mg daily -Hemoglobin A1c is 5.5 -Total cholesterol 152/LDL 103/HDL 33/triglycerides 82 -Cardiac diet -Cardiology following-appreciate input--> plan is for cardiac catheterization on tomorrow morning Elevated blood pressure -No history of hypertension -Continue metoprolol and lisinopril as noted for cardiac purposes and monitor blood pressure -We will trend Hyperlipidemia -Patient is on this for statin and 10 mg daily--> continue increased dose of 80 mg daily -Total cholesterol 152/LDL 103/HDL 33/triglycerides 82 Hyperglycemia -Patient not diabetic -Hemoglobin A1c was 5.5 Erythrocytosis -Resolved Left eye infection -Continue outpatient eyedrops as previously prescribed -Continue Augmentin as it appears there is a periorbital cellulitis forming -We will plan on treating for a total of 10 days at the time of discharge day 2 of 10 today Obesity -BMI 34.5 -Recommend weight loss next-complicates treatment, prognosis, outcomes Tobacco abuse -Patient vapes -Used to smoke 2 packs of cigarettes daily but has cut back dramatically in the last 10 years -Smoking cessation recommended and discussed on admission -Nicotine patch 14 mcg DVT prophylaxis -Lovenox 1 mg/kg SQ twice daily CODE STATUS Full code Charges/Coding Visit Charges Inpatient E&M: 44999 Subs Hosp L2
--- NOTE | 2022-10-06 10:55 | PCM.PN.CARD ---
Subjective Subjective Patient seen and evaluated Objective Data Vital Signs: Vital Signs Temp Pulse Resp BP Pulse Ox O2 Del Method 97.5 F L 49 L 18 100/59 L 99 Room Air 10/06/22 08:50 10/06/22 08:50 10/06/22 08:50 10/06/22 08:50 10/06/22 08:50 10/06/22 08:50 Oxygen Delivery Method Room Air Weight: 253 lb 8.505 oz Body Mass Index (BMI) 34.4 Intake & Output: Intake and Output for Last 24 Hours 10/04/22 10/05/22 10/06/22 23:59 23:59 23:59 Intake Total 120 / 120 720 / 1040 480 / 480 Balance 120 / 120 720 / 1040 480 / 480 Lab / Micro Data Result Diagrams: 10/05/22 05:05 10/05/22 05:05 Cardiology Labs/Tests Rhythm: EKG: ECHO: Stress Test: Cardiac Cath: PCI: CT Surgery: Holter monitor: EPS: PPM: CXR: Chest CT Scan: Radiography Diagnostic Testing: Radiology Impression Echocardiogram 10/04/22 15:55 Interpretation Summary Normal LV size. Left ventricular systolic function is normal. The estimated ejection fraction is 60 %. Contrast injection was performed. Ordering Physician: Irma Guy Referring Physician: Rylee Boss Performed By: Carmen Pandya, SCOTT, RVT Physical Exam Const alert, oriented x3 and no apparent distress General Appearance: cooperative HEENT hearing grossly normal bilaterally Head and Scalp: atraumatic Eyes EOMs intact bilaterally Neck General: normal visual inspection Chest inspection of chest normal and palpation of chest normal Resp normal respiratory effort Auscultation: clear to auscultation bilaterally Cardio regular rate, regular rhythm, S1 normal heart sound and S2 normal heart sound Jugular Venous Distention: JVD GI normal to inspection, nondistended, normoactive bowel sounds Extremity normal capillary refill and no pedal edema Peripheral Pulses: Yes pulses 2+ throughout and femoral pulses present Skin no rashes or lesions noted Neuro oriented x3 and CN's II-XII intact bilaterally Psych Appearance: grossly normal and appropriate Assessment & Plan Assessment/Plan (1) Unstable angina pectoris: PLAN: Patient resents with new onset chest discomfort which is suggestive of unstable angina. My recommendation is for us to proceed with a left heart catheterization. The risk benefits alternatives have been discussed with him he understands and agrees to proceed. In the meantime he will be started on aspirin low-dose beta-lou as well as high intensity statin in addition to the Lovenox. Echocardiogram demonstrates preserved left ventricular systolic function. Thank you for allowing me to participate in the care of your patient. Please don't hesitate to call if any issues arise.
[2022-10-06] MEDS: Atorvastatin Calcium 80 MG Tablet PO (20:43)
[2022-10-07] VITALS (16 sets, daily range): BP systolic 93–123; BP diastolic 63–87; PULSE 46–60; RESP 12–19; TEMP 35.9–36.8; O2SAT 95–100
[2022-10-07 04:49] LABS: Absolute Lymphocyte Count 2.19 X10^3/uL (0.83-4.51); Absolute Neutrophil Count 3.3 X10^3/uL (2.0-7.7); Basophil# 0.06 X10^3/uL; Basophil% 0.9 % (0-1); Eosinophil# 0.31 X10^3/uL; Eosinophils% 4.7 % (0-5); Hematocrit 47.9 % (40-54); Lymphocyte # 2.19 X10^3/ul (0.83-4.51); Lymphocyte % 33.2 % (19-41); Mean Corp Hgb Conc 33.4 g/dL (32-36); Mean Corpuscular Hgb 30.2 pg (27.0-32.0); Mean Corpuscular Volume 90.4 fL (80-94); Mean Platelet Vol. 9.2 fl (6.2-12.0); Monocyte# 0.73 X10^3/uL; Monocyte% 11.1 % (0-10); NRBC Flagged by Analyzer 0 % (0-5); Neutrophil # 3.29 X10^3/uL (2.7-7.7); Neutrophil % 49.9 % (47-70); Platelet Count 238 K/mm3 (150-450); RBC Distribution Width CV 13.2 % (11.6-14.6); RBC Distribution Width SD 43.4 fl (35.1-43.9); White Blood Count 6.6 K/mm3 (4.4-11.0)
[2022-10-07 05:41] LABS: Anion Gap 5 (5-15); BUN 20 mg/dL (7-18); BUN/Creat Ratio 23.9 RATIO (10-20); Calcium,Total 8.6 mg/dL (8.5-10.1); Chloride 107 mmol/L (98-107); Creatinine, Serum 0.84 mg/dL (0.70-1.30); EST Glomerular Filtration Rate 99 mL/min (>60); Est Glom Filt Rate - Afr Amer 120 mL/min (>60); Estimated Creatinine Clearance 102.65 ml/min; Glucose 104 mg/dL (74-106); Sodium Level 140 mmol/L (136-145)
[2022-10-07] MEDS: Aspirin E.C. 81 MG Tablet PO (06:14)
[2022-10-07] MEDS: 0.9% Saline Lock 10 ML Syringe IV (06:14)
[2022-10-07] MEDS: Tobram/Dexam 2.5ML OPTH.BTL 1 DRP LEFT EYE ×4 (08:46→22:08)
--- NOTE | 2022-10-07 09:04 | CASEMGMT ---
Tertiary facilities in-network with patient's insurance: [facility], [facility], [facility], , [facility], [facility], [facility].
--- NOTE | 2022-10-07 10:17 | NURSING ---
Report called to clinical laboratory technician
--- NOTE | 2022-10-07 11:06 | PCM.PN.CARD ---
Subjective Subjective Patient seen and evaluated. Underwent cardiac catheterization today Objective Data Vital Signs: Vital Signs Temp Pulse Resp BP Pulse Ox O2 Del Method 97.8 F 47 L 14 115/72 95 Room Air 10/07/22 08:42 10/07/22 08:42 10/07/22 08:42 10/07/22 08:42 10/07/22 08:42 10/07/22 08:42 Oxygen Delivery Method Room Air Weight: 253 lb 8.505 oz Body Mass Index (BMI) 34.4 Intake & Output: Intake and Output for Last 24 Hours 10/05/22 10/06/22 10/07/22 23:59 23:59 23:59 Intake Total 720 / 1040 1350.25 / 1350.25 Balance 720 / 1040 1350.25 / 1350.25 Lab / Micro Data Result Diagrams: 10/07/22 04:10 10/07/22 04:10 Labs: Laboratory Results - last 24 hr 10/07/22 04:10: WBC 6.6, RBC 5.30, Hgb 16.0, Hct 47.9, MCV 90.4, MCH 30.2, MCHC 33.4, RDW Std Deviation 43.4, RDW Coeff of Josr 13.2, Plt Count 238, MPV 9.2, Immature Gran % (Auto) 0.200, Neut % (Auto) 49.9, Lymph % (Auto) 33.2, [place] % (Auto) 11.1 H, Eos % (Auto) 4.7, Baso % (Auto) 0.9, Absolute Neuts (auto) 3.3, Absolute Lymphs (auto) 2.19, Nucleated RBC % 0 10/07/22 04:10: Sodium 140, Potassium 4.0, Chloride 107, Carbon Dioxide 28.0, Anion Gap 5, BUN 20 H, Creatinine 0.84, Estim Creat Clear Calc 102.65, Est GFR (MDRD) Af Amer 120, Est GFR (MDRD) Non-Af 99, BUN/Creatinine Ratio 23.9 H, Glucose 104, Calcium 8.6 Cardiology Labs/Tests 10/07/22 04:10: WBC 6.6, RBC 5.30, Hgb 16.0, Hct 47.9, MCV 90.4, MCH 30.2, MCHC 33.4, Plt Count 238, MPV 9.2, Immature Gran % (Auto) 0.200, Neut % (Auto) 49.9, Lymph % (Auto) 33.2, [place] % (Auto) 11.1 H, Eos % (Auto) 4.7, Baso % (Auto) 0.9, Absolute Neuts (auto) 3.3, Nucleated RBC % 0 10/07/22 04:10: Sodium 140, Potassium 4.0, Chloride 107, Carbon Dioxide 28.0, Anion Gap 5, BUN 20 H, Creatinine 0.84, Est GFR (MDRD) Af Amer 120, Est GFR (MDRD) Non-Af 99, BUN/Creatinine Ratio 23.9 H, Glucose 104, Calcium 8.6 Rhythm: EKG: ECHO: Stress Test: Cardiac Cath: PCI: CT Surgery: Holter monitor: EPS: PPM: CXR: Chest CT Scan: Physical Exam Const alert, oriented x3 and no apparent distress General Appearance: cooperative HEENT hearing grossly normal bilaterally Head and Scalp: atraumatic Eyes EOMs intact bilaterally Neck General: normal visual inspection Chest inspection of chest normal and palpation of chest normal Resp normal respiratory effort Auscultation: clear to auscultation bilaterally Cardio regular rate, regular rhythm, S1 normal heart sound and S2 normal heart sound Jugular Venous Distention: JVD GI normal to inspection, nondistended, normoactive bowel sounds Extremity normal capillary refill and no pedal edema Peripheral Pulses: Yes pulses 2+ throughout and femoral pulses present Skin no rashes or lesions noted Neuro oriented x3 and CN's II-XII intact bilaterally Psych Appearance: grossly normal and appropriate Assessment & Plan Assessment/Plan (1) Unstable angina pectoris: PLAN: Patient resents with new onset chest discomfort which is suggestive of unstable angina. Cardiac catheterization demonstrated the following: Normal left main coronary artery. Left anterior descending artery with sequential 80 to 90% mid segment stenosis. Left circumflex artery with moderately severe 60 to 70% proximal to mid stenosis. Dominant right coronary artery with high-grade proximal stenosis and an ectatic vessel. Preserved left ventricular systolic function. Based on the above angiographic findings would recommend staged PCI. Thank you for allowing me to participate in the care of your patient. Please don't hesitate to call if any issues arise.
--- NOTE | 2022-10-07 11:13 | CL.D_ITS ---
Patient Name: VARGAS CARPENTER Study Date: 10/07/2022 Performing: Tobias Steward MD Ht: 72 inches 182.88 cm : 1960 Wt: 253.53 lbs 115 kg Age: 62 Gender: male BSA: 2.36 PROCEDURE(S) PERFORMED DC01-([id number])LHC/COR/LV CLINICAL PROFILE AND INDICATIONS Indications: Suspected CAD Heart Failure: None CONCLUSIONS Severe three-vessel disease but mainly involving the mid LAD and the proximal right coronary artery with preserved ejection fraction. RECOMMENDATIONS Referred for immediate PCI DESCRIPTION OF PROCEDURE The patient arrived to the procedure lab. The risks and benefits of the procedure as well as a full description of our services here and current unavailability of surgical backup were fully explained to the patient and/or their significant other prior to the catheterization. The Timeout was completed, verifying the correct patient and procedure. The patient's procedural site was prepped and draped in the usual fashion. Local anesthetic was given subcutaneously to right radial region with Lidocaine 2%. Using a modified Seldinger technique, arterial access was obtained via the right radial artery, a 6Fr sheath was inserted. Left Coronary Artery selective angiography was performed in multiple views using a 5 Fr. 4.0 Bois D Arc catheter. Right Coronary Artery selective angiography was then performed in multiple views using a 5 Fr. JR 5 catheter. Left Ventriculography was performed in BEARD projection using a 5 Fr. Pigtail catheter. CORONARY ANGIOGRAPHY DOMINANCE: Right Dominant LEFT HEART ASSESSMENT Left Ventricular Ejection Fraction: by LV Gram 60 % Normal LV wall motion Normal Left Ventricular systolic function LEFT MAIN: Angiographically normal LEFT ANTERIOR DESCENDING ARTERY: Mildly calcified vessel with sequential 80 to 90% stenosis noted in the mid left anterior descending artery. CIRCUMFLEX ARTERY: Nondominant but medium size vessel with 70% stenosis noted in the midsegment. RIGHT CORONARY ARTERY: Dominant vessel with ectatic proximal to mid segment and a high-grade 80% stenosis noted in the proximal and diffuse up to 50% stenosis noted in the mid the distal vessel appears to be free of significant disease COMPLICATIONS PROCEDURE MEDICATIONS Versed 1 mg IV Fentanyl 50 mcg IV Oxygen: 2 L/min via nasal cannula Heparin given IA 10/07/2022 10:48:48 Verapamil 2.5mg, Ntg 100mcgs, 3000 units of Heparin given IA 10/07/2022 10:48:48 SUMMARY OF HEMODYNAMIC DATA Time AIR REST ECG 10:29:54 AO 78/51 (63) SA 10:49:12 AO 94/58 (76) 10:55:15 LV 92/-2, 3 10:59:02 LV 98/-1, 5 10:59:10 LV 92/2, 15 10:59:48 LVp 96/4, 12 10:59:56 AOp 103/37 (76) 11:00:03 Signed By Tobias Steward MD On 10/07/2022 11:13:10 Tobias Steward MD
--- NOTE | 2022-10-07 12:35 | CL.I_ITS ---
Patient Name: VARGAS CARPENTER Study Date: 10/07/2022 Performing: Garland Nina MD Ht: 72 inches 182.88 cm : 1960 Wt: 253.9 lbs 115 kg Age: 62 Gender: male BSA: 2.36 PROCEDURE(S) PERFORMED IC12-(39050/[id number])MAYI W/WO PTCA, SINGLE CORONARY ARTERY IC12-([id number]/[id number])MAYI W/WO PTCA, SINGLE CORONARY ARTERY CLINICAL PROFILE AND CO-MORBIDITIES Indications: Suspected CAD Heart Failure: None CONCLUSIONS Successful PTCA/MAYI Prox LAD using Resolute [place] 3.0x30 mm Successful MAYI Mid LCX using Resolute [place] 2.5x15 mm, post-dilated using 3.0 mm balloon RECOMMENDATIONS ASA Indefinitlerose Brilinta for at least 12 months Staged PCI to RCA DESCRIPTION OF PROCEDURE The patient arrived to the procedure lab. The risks and benefits of the procedure as well as a full description of our services here and current unavailability of surgical backup were fully explained to the patient and/or their significant other prior to the catheterization. The Timeout was completed, verifying the correct patient and procedure. The patient's procedural site was prepped and draped in the usual fashion. Local anesthetic was given subcutaneously to right radial region with Lidocaine 2% Using a modified Seldinger technique,arterial access was obtained via the right radial artery, a 6Fr sheath was inserted. Left Coronary Artery selective angiography was performed in multiple views using a 5 Fr. 4.0 [place] catheter. Right Coronary Artery selective angiography was then performed in multiple views using a 5 Fr. JR 5 catheter. Left Ventriculography was performed in BEARD projection using a 5 Fr. Pigtail catheter.The images were reviewed and options discussed. A decision was then made to proceed with an Intervention, IVUS or other adjunct procedure. XB 3.0 Guide catheter was inserted and engaged into the LCA. RUNTHROUGH Guide wire was advanced to the LAD. 2.5X20 EUPHORA Balloon catheter was inserted. Balloon catheter was advanced across lesion in the LAD, proximal. PTCA balloon inflated at 10 atms for 10 secs. PTCA balloon inflated at 10 atms for 10 secs. PTCA balloon inflated at 8 atms for 10 secs. 3.0X30 RESOLUTE Drug Eluting stent was inserted. Drug Eluting stent was advanced across the lesion in the LAD, proximal. Drug Eluting stent was removed intact, failed to cross lesion 2.75X20 NC EMERGE Balloon catheter was inserted. Balloon catheter was advanced across lesion in the LAD, proximal. PTCA balloon inflated at 14 atms for 10 secs. PTCA balloon inflated at 14 atms for 10 secs. PTCA balloon inflated at 12 atms for 9 secs. 3.0X30 RESOLUTE Drug Eluting stent was reinserted 3.0X20 NC EMERGE Balloon catheter was inserted post stent. Angiogram performed post balloon dilatation. RUNTHROUGH Guide wire was repositioned to the Circumflex 2.5X15 RESOLUTE Drug Eluting stent was inserted. Drug Eluting stent was advanced across the lesion in the circumflex, mid. 3.0X15 NC EMERGE Balloon catheter was inserted post stent. Angiogram performed post balloon dilatation. The arterial sheath was pulled and a TR Band was applied for hemostasis-10 cc air INTERVENTION INFORMATION LESION SITE: LAD (Proximal) Lesion Complexity: High/C, lesion length: 28 mm, culprit lesion: Yes Pre Stenosis: 90 % Pre intervention SAMANTHA flow: 3 PROCEDURE: Drug Eluting Stent with pre and post dilatation Post Stenosis: 0 % Post intervention SAMANTHA flow: 3 Lesion Devices: Cordis 6 Fr XB3.0 100cm Guide Catheter Terumo .014 180cm Runthrough Extra Floppy straight Medtronic SC EUPHORA RX 2.5x20 BALLOON Medtronic Resolute [place] RX MAYI 3.0x30 Luiz Sci NC EMERGE MR 2.75x20 BALLOON Luiz Sci NC EMERGE MR 3.00x20 BALLOON LESION SITE: Circumflex (Mid) Pre Stenosis: 80 % Pre intervention SAMANTHA flow: 3 PROCEDURE: Drug Eluting Stent with post dilatation Post Stenosis: 0 % Post intervention SAMANTHA flow: 3 Lesion Devices: Cordis 6 Fr XB3.0 100cm Guide Catheter Terumo .014 180cm Runthrough Extra Floppy straight Medtronic Resolute [place] RX MAYI 2.5x15 Luiz Sci NC EMERGE MR 3.00x15 BALLOON COMPLICATIONS No Complications PROCEDURE MEDICATIONS Versed 1 mg IV Fentanyl 50 mcg IV Oxygen: 2 L/min via nasal cannula Brilinta 180 mg PO @ 10/07/2022 11:12:35 Heparin given IA 10/07/2022 10:48:48 Heparin 8000 unit(s) IV 10/07/2022 11:15:07 Heparin 2000 unit(s) IV 10/07/2022 11:50:06 Nitro 200 mcg IC 10/07/2022 11:48:49 Nitro 200 mcg IC 10/07/2022 11:48:49 Nitro 200 mcg IC 10/07/2022 11:58:44 Verapamil 2.5mg, Ntg 100mcgs, 3000 units of Heparin given IA 10/07/2022 10:48:48 SUMMARY OF HEMODYNAMIC DATA Time AIR REST ECG 10:29:54 AO 78/51 (63) SA 10:49:12 AO 94/58 (76) 10:55:15 LV 92/-2, 3 10:59:02 LV 98/-1, 5 10:59:10 LV 92/2, 15 10:59:48 LVp 96/4, 12 10:59:56 AOp 103/37 (76) 11:00:03 AO 119/73 (91) 11:20:40 AIR REST 11:20:50 Signed By Garland Nina MD On 10/07/2022 12:34:29 Garland Nina MD
--- NOTE | 2022-10-07 13:21 | CRPHASE1_ITS ---
Patient Communication PHII Cardiac Rehab Discussed with Patient:: Yes Guide to Cardiac Rehab Given to Patient:: Yes Cardiac Rehab Facility Choice List Given to Patient:: Yes Choice Program [facility] CR PHII:: Communication Given to CR Government Program Manager:: Garland Nina Phase II Cardiac Rehab:: Yes Sessions:: 36 sessions - 3 days/wk, 12 weeks Cardiac Rehabilitation Info Cardiac Rehabilitation Program Information: Cardiac Rehab The cardiac rehab team at [facility] consists of highly skilled exercise physiologists, nurses, respiratory therapists and physicians working together with you. Our purpose is to help you have a full recovery and achieve the goals you set for yourself. Over the years many of our patients have returned to activities they assumed they would never do again! We can help restore your confidence and motivation to make lifestyle changes that can have a significant impact on your health and quality of life! We can help answer questions and concerns you may have about exercise, lifestyle, medications, diet, stress and anxiety which are common following a hospitalization. WE monitor ECG and vital signs during exercise and discuss your progress with you and report to your physician(s). Cardiac Rehab is proven to help reduce readmissions, improve functional capacity and lower recurrence of problems with your heart. Our Cardiac Rehab program is Certified by the [place] [employer]-V[employer] Pulmonary [employer] (AACVPR) and Accredited by the [employer] through our [facility]. You can contact us at . We invite you to call us with your questions or to get started in our program. If you have other questions or concerns be sure to ask your physician/provider during your follow-up visit. WE look forward to seeing you!
--- NOTE | 2022-10-07 13:21 | CRPH1.INST_ITS ---
General Education CAD and cardiac anatomy and function:: Patient communicates acknowledgment, Family communicates acknowledgment, Needs reinforcement Explanation of diagnoses and procedures:: Patient communicates acknowledgment, Family communicates acknowledgment, Needs reinforcement Sign/Symptoms of [place]:: Patient communicates acknowledgment, Family communicates acknowledgment, Needs reinforcement Antiplatelet therapy: Patient communicates acknowledgment, Family communicates acknowledgment, Needs reinforcement Proper use of NTG-SL: Patient communicates acknowledgment, Family communicates acknowledgment, Needs reinforcement Emergency procedures and activation of EMS: Patient communicates acknowledgment, Family communicates acknowledgment, Needs reinforcement Compliance of all prescribed medications: Patient communicates acknowledgment, Family communicates acknowledgment, Needs reinforcement Smoking Patient Nicotine/Smoking Risk Factors Are:: Cigarettes Recommendations Include:: Second-hand smoke recommendation, Participation in a smoking cessation program Nicotine/Smoking Response Code:: Patient communicates acknowledgment, Family communicates acknowledgment, Needs reinforcement Dyslipidemia Patient Dyslipidemia Risk Factors Are:: Total Cholesterol, Triglycerides, HDL, LDL Recommendations Include:: Lipid profile not available Dyslipidemia Response Code:: Patient communicates acknowledgment, Family communicates acknowledgment, Needs reinforcement Overweight/Obesity Patient Overweight/Obesity Risk Factors Are:: Obesity - > or = 30 Recommendations Include:: Weight loss of 5-10%, Reduced calorie diet, Exercise 5-7 times/week Overweight/Obesity:: Patient communicates acknowledgment, Family communicates ac knowledgment, Needs reinforcement Hypertension Patient Hypertension Risk Factors Are:: No documented hx of HTN Heart Disease Patient Heart Disease Risk Factors Are:: Family history of heart disease < 65 years old Recommendations Include:: Educated family members of their risk Heart Disease Response Code:: Patient communicates acknowledgment, Family communicates acknowledgment, Needs reinforcement Diabetes Patient Diabetes Risk Factors Are:: No documented hx of diabetes Sedentary Patient Sedentary Risk Factors Are:: Lack of regular exercise Recommendations Include:: Aerobic exercise 5-7 times/week for 20-30 minutes continuously, Benefits of regular exercise, Discussed home walking program, Monitored Outpatient Cardiac Rehab Sedentary Response Code:: Patient communicates acknowledgment, Family communicates acknowledgment, Needs reinforcement
--- NOTE | 2022-10-07 13:27 | PCM.PN.HOSP ---
Reason for Visit Reason for Visit: Chest Pain Subjective Subjective States he no issues overnight. Has come back from the [facility] where 2 drug-eluting stents have been placed. Plan is for staged procedure in the next 1 to 2 weeks for 1 other stent to be placed. Objective Data Objective Data Vital Signs: Vital Signs Temp Pulse Resp BP Pulse Ox O2 Del Method 97.8 F 47 L 14 115/72 95 Room Air 10/07/22 08:42 10/07/22 08:42 10/07/22 08:42 10/07/22 08:42 10/07/22 08:42 10/07/22 08:42 Oxygen Delivery Method Room Air Weight: 115 kg Body Mass Index (BMI) 34.4 Intake & Output: Intake and Output for Last 24 Hours 10/05/22 10/06/22 10/07/22 23:59 23:59 23:59 Intake Total 720 / 1040 1350.25 / 1350.25 Balance 720 / 1040 1350.25 / 1350.25 Lab / Micro Data Result Diagrams: 10/07/22 04:10 10/07/22 04:10 Labs: Laboratory Results - last 24 hr 10/07/22 04:10: WBC 6.6, RBC 5.30, Hgb 16.0, Hct 47.9, MCV 90.4, MCH 30.2, MCHC 33.4, RDW Std Deviation 43.4, RDW Coeff of Josr 13.2, Plt Count 238, MPV 9.2, Immature Gran % (Auto) 0.200, Neut % (Auto) 49.9, Lymph % (Auto) 33.2, [place] % (Auto) 11.1 H, Eos % (Auto) 4.7, Baso % (Auto) 0.9, Absolute Neuts (auto) 3.3, Absolute Lymphs (auto) 2.19, Nucleated RBC % 0 10/07/22 04:10: Sodium 140, Potassium 4.0, Chloride 107, Carbon Dioxide 28.0, Anion Gap 5, BUN 20 H, Creatinine 0.84, Estim Creat Clear Calc 102.65, Est GFR (MDRD) Af Amer 120, Est GFR (MDRD) Non-Af 99, BUN/Creatinine Ratio 23.9 H, Glucose 104, Calcium 8.6 Physical Exam Const alert, oriented x3, no apparent distress and well nourished; Negative for average body habitus Constitutional Narrative: Obese, upper middle-aged, white male, lying in bed, at bedside, appears comfortable and nontoxic General Appearance: cooperative HEENT normocephalic, head/scalp atraumatic, hearing grossly normal bilaterally and moist oral mucous membranes HEENT Narrative: Dentition is fair, Mallampati is 3, no thrush Eyes Eyes Narrative: Erythema around left eye has resolved Resp normal respiratory effort, no retractions, no use of accessory muscles and clear to auscultation bilaterally Resp Narrative: Diminished diffusely but clear Auscultation: Negative for rales, rhonchi or wheezes Cardio regular rate, regular rhythm, S1 normal heart sound, S2 normal heart sound, no murmurs, no rub, no gallops and no clicks GI normal to inspection, nondistended, normoactive bowel sounds, soft to palpation and non-tender Extremity no clubbing, cyanosis or edema Extremity Narrative: Pedal pulses are 2+, right radial compression device post catheterization is in place Neuro oriented x3, moves all extremities and no focal motor deficits Speech: speech normal Psych affect normal Psych Narrative: Very pleasant, appropriate Assessment & Plan Assessment/Plan (1) Non-ST elevated myocardial infarction (non-STEMI): (2) Blood pressure elevated without history of HTN: (3) Hyperglycemia: (4) Erythrocytosis: (5) Coronary artery disease: PLAN: Plan NSTEMI -Cardiac catheterization performed on 10/07/2022 showed triple-vessel disease that was amenable to percutaneous treatment -PCI with MAYI to proximal LAD and PCI to with MAYI to mid left circumflex -Staged PCI planned for RCA -Continue aspirin 81 mg daily indefinitely -Brilinta 90 mg twice daily initiated after stenting for at least 1 year -Continue metoprolol 12.5 mg p.o. twice daily--> hold parameter is added as his blood pressure has not been high and his heart rate has been low in the evening when he is sleeping -Cardiology added amlodipine 2.5 mg today -Patient had been on lisinopril 2.5 mg daily but did not tolerated due to blood pressure -Discontinue Lovenox 1 mg/kg twice daily -Continue atorvastatin 80 mg daily -Hemoglobin A1c is 5.5 -Total cholesterol 152/LDL 103/HDL 33/triglycerides 82 -Cardiac diet -Cardiology following-appreciate input Elevated blood pressure -No history of hypertension -Continue metoprolol and lisinopril as noted for cardiac purposes and monitor blood pressure -We will trend Hyperlipidemia -Patient is on this for statin and 10 mg daily--> continue increased dose of 80 mg daily -Total cholesterol 152/LDL 103/HDL 33/triglycerides 82 Hyperglycemia -Patient not diabetic -Hemoglobin A1c was 5.5 Left eye infection -Continue outpatient eyedrops as previously prescribed -Continue Augmentin as it appears there is a periorbital cellulitis forming -We will plan on treating for a total of 10 days at the time of discharge day 3 of 10 today Obesity -BMI 34.5 -Recommend weight loss next-complicates treatment, prognosis, outcomes Tobacco abuse -Patient vapes -Used to smoke 2 packs of cigarettes daily but has cut back dramatically in the last 10 years -Smoking cessation recommended and discussed on admission -Nicotine patch 14 mcg DVT prophylaxis -Lovenox 1 mg/kg SQ twice daily CODE STATUS Full code Disposition: -Probable discharge home tomorrow with plans for follow-up to perform staged PCI to RCA Charges/Coding Visit Charges Inpatient E&M: 47123 Subs Hosp L2
[2022-10-07 13:29] LABS: ACT Activated Clotting Time 287 sec (74-137)
[2022-10-07 13:30] LABS: ACT Activated Clotting Time 257 sec (74-137)
--- NOTE | 2022-10-07 13:50 | CASEMGMT ---
RN BENJIE Face to Face with patient for initial transition planning/care coordination assessment. RN CM introduced self and role at [facility]. Patient lying in bed, alert and oriented, at bedside. Patient willing to participate in assessment and is able to answer all questions appropriately. Care providers, pharmacy, and demographics verified. Patient wishes to discharge home, denies need for home health at this time. Patient states he has no further needs or concerns at this time. CM to follow for discharge planning needs that may arise. 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 Patient states he is independent at home and able to ambulate stairs. Transportation: self, DME/HHC: patient denies DME in the home. No previous HHC or SNF. Disposition Plan: Patient to discharge home with family support and follow-up plans in place. Irina FLYNN, RN, CM
[2022-10-07] MEDS: Amox/Clavulanate 875 MG Tablet PO ×2 (15:01→22:09)
[2022-10-07] MEDS: 0.9% Normal Saline 1,000 ML 150 ML IV (15:14)
[2022-10-07] MEDS: Hydrocortisone 2.5% Ointment 20 gm tube 1 APPLIC TOPICAL (22:08)
[2022-10-07] MEDS: Atorvastatin Calcium 80 MG Tablet PO (22:09)
[2022-10-07] MEDS: TICAGRELOR 90 MG TABLET PO (22:09)
[2022-10-07] MEDS: 0.9% Normal Saline 1,000 ML 15 ML IV (22:10)
[2022-10-08 03:30] VITALS: BP 118/72; PULSE 56; RESP 16; TEMP 36.6; O2SAT 98
[2022-10-08 05:46] LABS: Hematocrit 47.5 % (40-54); Mean Corp Hgb Conc 33.7 g/dL (32-36); Mean Corpuscular Hgb 30.1 pg (27.0-32.0); Mean Corpuscular Volume 89.3 fL (80-94); Mean Platelet Vol. 9.5 fl (6.2-12.0); Platelet Count 227 K/mm3 (150-450); RBC Distribution Width CV 13.1 % (11.6-14.6); Red Blood Count 5.32 M/mm3 (4.6-6.2); White Blood Count 8.8 K/mm3 (4.4-11.0)
[2022-10-08 06:34] LABS: ALB/GLOB Ratio 1.2 RATIO (0.9-2.4); AST(SGOT) 78 U/L (15-37); Alanine Aminotransfer ALT/SGPT 90 U/L (16-61); Albumin, Serum 3.3 g/dL (3.2-5.0); Alkaline Phosphatase 56 U/L (45-117); Anion Gap 5 (5-15); BUN 16 mg/dL (7-18); BUN/Creat Ratio 21.4 RATIO (10-20); Calcium,Total 8.4 mg/dL (8.5-10.1); Chloride 109 mmol/L (98-107); Creatinine, Serum 0.75 mg/dL (0.70-1.30); EST Glomerular Filtration Rate 113 mL/min (>60); Est Glom Filt Rate - Afr Amer 137 mL/min (>60); Estimated Creatinine Clearance 114.96 ml/min; Globulin 2.8 g/dL (2.2-4.2); Glucose 93 mg/dL (74-106); Protein, Total 6.1 g/dL (6.4-8.2); Sodium Level 140 mmol/L (136-145)
--- NOTE | 2022-10-08 07:44 | PCM.PN.CARD ---
Subjective Subjective Pt seen and evaluated Objective Data Vital Signs: Vital Signs Temp Pulse Resp BP Pulse Ox O2 Del Method 98 F 56 L 16 118/72 98 Room Air 10/08/22 03:30 10/08/22 03:30 10/08/22 03:30 10/08/22 03:30 10/08/22 03:30 10/08/22 03:30 Oxygen Delivery Method Room Air Weight: 253 lb 8.505 oz Body Mass Index (BMI) 34.4 Intake & Output: Intake and Output for Last 24 Hours 10/06/22 10/07/22 10/08/22 23:59 23:59 23:59 Intake Total 1350.25 / 1350.25 1954 120 / 120 Balance 1350.25 / 1350.25 1954 120 / 120 Lab / Micro Data Result Diagrams: 10/08/22 05:02 10/08/22 05:02 Labs: Laboratory Results - last 24 hr 10/07/22 11:20: Activated Clotting Time 287 H 10/07/22 12:05: Activated Clotting Time 257 H 10/08/22 05:02: WBC 8.8, RBC 5.32, Hgb 16.0, Hct 47.5, MCV 89.3, MCH 30.1, MCHC 33.7, RDW Std Deviation 43.0, RDW Coeff of Josr 13.1, Plt Count 227, MPV 9.5 10/08/22 05:02: Sodium 140, Potassium 4.0, Chloride 109 H, Carbon Dioxide 26.0, Anion Gap 5, BUN 16, Creatinine 0.75, Estim Creat Clear Calc 114.96, Est GFR (MDRD) Af Amer 137, Est GFR (MDRD) Non-Af 113, BUN/Creatinine Ratio 21.4 H, Glucose 93, Calcium 8.4 L, Total Bilirubin 1.20 H, AST 78 H, ALT 90 H, Alkaline Phosphatase 56, Total Protein 6.1 L, Albumin 3.3, Globulin 2.8, Albumin/Globulin Ratio 1.2 Cardiology Labs/Tests 10/08/22 05:02: WBC 8.8, RBC 5.32, Hgb 16.0, Hct 47.5, MCV 89.3, MCH 30.1, MCHC 33.7, Plt Count 227, MPV 9.5 10/08/22 05:02: Sodium 140, Potassium 4.0, Chloride 109 H, Carbon Dioxide 26.0, Anion Gap 5, BUN 16, Creatinine 0.75, Est GFR (MDRD) Af Amer 137, Est GFR (MDRD) Non-Af 113, BUN/Creatinine Ratio 21.4 H, Glucose 93, Calcium 8.4 L, Total Bilirubin 1.20 H Rhythm: EKG: ECHO: Stress Test: Cardiac Cath: PCI: CT Surgery: Holter monitor: EPS: PPM: CXR: Chest CT Scan: Assessment & Plan Assessment/Plan (1) Unstable angina pectoris: PLAN: Patient resents with new onset chest discomfort which is suggestive of unstable angina. Cardiac catheterization demonstrated the following: Normal left main coronary artery. Left anterior descending artery with sequential 80 to 90% mid segment stenosis. Left circumflex artery with moderately severe 60 to 70% proximal to mid stenosis. Dominant right coronary artery with high-grade proximal stenosis and an ectatic vessel. Preserved left ventricular systolic function. Patient underwent PCI of the LAD and left circumflex artery and will be brought back as a staged procedure in 2 weeks for further PCI of the right coronary artery. Thank you for allowing me to participate in the care of your patient. Please don't hesitate to call if any issues arise.
--- NOTE | 2022-10-08 07:59 | PCM.DC ---
Discharge Instructions Diet Discharge Diet: Low fat / Low cholesterol and 2000 mg Sodium Diet Activity Discharge Activity: Return to Normal Activity Weight Bearing Status: Weight bearing as tolerated Dressing / Incision Call your doctor if you observe: Fever of 101 or Higher, Coldness, Increased Pain, Numbness or Tingling, Change in Color, Inability to urinate, Inability to have a bowel movement, Shortness of breath, Dizziness, Fainting spells, Swelling in the ankles, Chest pain, Prolonged hiccupping, Increased palpitations (irregular heartbeat) and Calf discomfort Follow Up Care When: IN 2 WEEKS Test Results: Test results from this visit will be discussed in further detail at your follow-up appointment, if applicable. Discharge Plan Admission Admit Date/Time: 10/04/22 14:14 Primary Reason for Your Visit: NSTEMI, triple-vessel CAD Attending Provider: Edu Matta Primary Care Provider: Rylee Boss PRINTED CIRCUIT BOARD PREASSEMBLER Consulting Providers: Tobias Steward ; Irma Guy Discharge Orders/Prescriptions Prescriptions: New atorvastatin 80 mg Tablet 80 mg PO QHS 30 Days Qty: 30 2RF nicotine 14 mg/24 hr Patch 24 Hour 14 mg transdermal DAILY 30 Days Qty: 30 0RF amlodipine 2.5 mg Tablet 2.5 mg PO DAILY 30 Days Qty: 30 0RF aspirin 81 mg Tablet,Delayed Release (Dr/Ec) 81 mg PO BREAKFAST 30 Days Qty: 30 4RF nitroglycerin 0.4 mg Tablet, Sublingual 0.4 mg sublingual Q5M PRN (Reason: CHEST PAIN) Qty: 30 0RF amoxicillin-pot clavulanate 875-125 mg Tablet 875 mg PO BID 7 Days Qty: 14 0RF metoprolol tartrate 25 mg Tablet 12.5 mg PO BID 30 Days Qty: 60 2RF Brilinta 90 mg Tablet 90 mg PO BID 30 Days Qty: 60 2RF Continued magnesium 250 mg Tablet 250 mg PO QHS tobramycin-dexamethasone 0.3-0.1 % drops,suspension 1 drp LEFT EYE 4X/DAY Label Comments: INSTILL ONE DROP IN THE LEFT EYE FOUR TIMES DAILY FOR 10 DAYS Discontinued atorvastatin 10 mg tablet 10 mg PO DAILY Label Comments: take 1 tablet by mouth at bedtime for cholesterol Referrals / Follow Up: Tobias Steward MD [Med Staff - Active Staff] - Within 2 Weeks Care Physician,No Primary [Non-Staff] - Older,Rylee PRINTED CIRCUIT BOARD PREASSEMBLER, PRINTED CIRCUIT BOARD PREASSEMBLER-C [Primary Care Provider] - In 1 Week Disposition Disposition (needs filled in before D/C Order can be placed): Home, Self Care
[2022-10-08 08:23] VITALS: BP 120/75; PULSE 57; RESP 16; TEMP 36.6; O2SAT 98
[2022-10-08 08:33] VITALS: BP 120/75; PULSE 57
[2022-10-08] MEDS: Hydrocortisone 2.5% Ointment 20 gm tube 1 APPLIC TOPICAL (08:43)
[2022-10-08] MEDS: amLODIPine 2.5 MG Tablet PO (08:43)
[2022-10-08] MEDS: Amox/Clavulanate 875 MG Tablet PO (08:44)
[2022-10-08] MEDS: Tobram/Dexam 2.5ML OPTH.BTL 1 DRP LEFT EYE (08:44)
[2022-10-08] MEDS: Aspirin E.C. 81 MG Tablet PO (08:44)
[2022-10-08] MEDS: TICAGRELOR 90 MG TABLET PO (08:44)
--- NOTE | 2022-10-08 08:44 | DS.PCM_ITS ---
Providers Date of Admission: 10/04/22 Date of Discharge: 10/08/22 Primary Care Physician: DERRICK Byers Consultations 10/04/22 15:55 Consult: Cardiology Routine Consulting Provider: Tobias Steward Reason for Consult: NSTEMI EMERGENT Consult: Yes MD Notified: Yes Date Notified: 10/04/22 Time Notified: 14:15 Method of Notification: Text Reason For Visit: NSTEMI Diagnosis Discharge Diagnosis (1) Unstable angina pectoris: Status: Acute Code(s): I20.0 - Unstable angina Plan This is a 62-year-old gentleman was admitted with mid chest substernal pain with radiation to left shoulder, high troponin consistent with non-STEMI. Twelve- lead EKG shows no acute ST-T changes. Patient is admitted in PCU and oil field equipment mechanic supervisor was consulted. 1. Non-STEMI: Cardiac catheterization performed on 10/07/2022 showed triple-vessel disease that was amenable to percutaneous treatment -PCI with MAYI to proximal LAD and PCI to with MAYI to mid left circumflex -Staged PCI planned for RCA -Continue aspirin 81 mg daily indefinitely -Brilinta 90 mg twice daily initiated after stenting for at least 1 year -Continue metoprolol 12.5 mg p.o. twice daily -Cardiology added amlodipine 2.5 mg today -Patient had been on lisinopril 2.5 mg daily but did not tolerated due to blood pressure -Continue atorvastatin 80 mg daily -Hemoglobin A1c is 5.5 -Total cholesterol 152/LDL 103/HDL 33/triglycerides 82 -Cardiac diet -Cardiology following-appreciate input Hyperlipidemia -Patient is on this for statin and 10 mg daily--> continue increased dose of 80 mg daily -Total cholesterol 152/LDL 103/HDL 33/triglycerides 82 Hyperglycemia -Patient not diabetic -Hemoglobin A1c was 5.5 Left eye infection -Continue outpatient eyedrops as previously prescribed -Continue Augmentin as it appears there is developing/evolving periorbital cellulitis forming. Total duration of antibiotic 10 days, prescription for 7 more days given. Obesity -BMI 34.5 -Recommend weight loss next-complicates treatment, prognosis, outcomes Tobacco abuse -Patient vapes -Used to smoke 2 packs of cigarettes daily but has cut back dramatically in the last 10 years -Smoking cessation recommended and discussed on admission -Nicotine patch 14 mcg DVT prophylaxis -Lovenox 1 mg/kg SQ twice daily CODE STATUS Full code Discharge medication reconciliation done. Discharge follow-up instructions c ompleted. Discharge process discussed with the patient and all questions were answered to patient's satisfaction. Prescription was sent to patient's preferred pharmacy, [facility] Total time spent, exact 35 minutes on discharge meds reconciliation, examination, coordination of care with nurses and ancillary staff, review of imaging and blood test and discussion with the patient on follow-up instructions. Medications at Discharge Home Medications magnesium 250 mg tablet 250 mg PO QHS health maintenance 05/24/21 tobramycin 0.3 %-dexamethasone 0.1 % eye drops,suspension 1 drp LEFT EYE 4X/DAY eye infection 10/04/22 amlodipine 2.5 mg tablet 2.5 mg PO DAILY 30 days #30 tabs 10/08/22 amoxicillin 875 mg-potassium clavulanate 125 mg tablet 875 mg PO BID 7 days #14 tabs 10/08/22 aspirin 81 mg tablet,delayed release 81 mg PO BREAKFAST 30 days #30 tabs 10/08/22 atorvastatin 80 mg tablet 80 mg PO QHS 30 days #30 tabs 10/08/22 metoprolol tartrate 25 mg tablet 12.5 mg PO BID 30 days #60 tabs 10/08/22 nicotine 14 mg/24 hr daily transdermal patch 14 mg transdermal DAILY 30 days #30 ea 10/08/22 nitroglycerin 0.4 mg sublingual tablet 0.4 mg sublingual Q5M PRN CHEST PAIN #30 tabs 10/08/22 ticagrelor 90 mg tablet (Brilinta) 90 mg PO BID 30 days #60 tabs 10/08/22 Physical Exam Narrative Seen and examined. No acute events overnight. manager water shows sinus bradycardia about 52 to 55 bpm. Patient stated from his younger days his heart rate and blood pressure are on the low normal side. Physical exam General: Alert, Oriented x3, Cooperative HEENT: Atraumatic, PERRLA, EOMI, Normocephalic Oral: Oral mucosa moist. No Gingival or Mucosal Lesions/ Ulcerations Neck: Supple, No JVD, Negative Carotid Bruits Lungs: Air entry diminished in bilateral lung bases. No crepitation/rhonchi Cardiovascular: Sinus rhythm, Normal S1, Normal S2, No murmurs Abdomen: Bowel Sounds Present, Soft, Non Tender, Non-Distended : No renal angle tenderness. No suprapubic tenderness. Extremities: No edema, Capillary Refill Less than 3 Seconds Skin: No rashes, No breakdown Musculoskeletal: No Tenderness to Palpation of Joints or Extremities Neurological: Cranial nerves II-XII grossly intact, DTR 2+/4 and Symmetrical, Neuro grossly intact Psych/Mental Status: Normal Affect, Appropriate. Weight / BMI Weight Weight: 253 lb 8.505 oz Body Mass Index (BMI) 34.4 ABG / Lab / Microbiology Data Result Diagrams: 10/08/22 05:02 10/08/22 05:02 Laboratory: Laboratory Results - last 24 hr 10/07/22 11:20: Activated Clotting Time 287 H 10/07/22 12:05: Activated Clotting Time 257 H 10/08/22 05:02: WBC 8.8, RBC 5.32, Hgb 16.0, Hct 47.5, MCV 89.3, MCH 30.1, MCHC 33.7, RDW Std Deviation 43.0, RDW Coeff of Josr 13.1, Plt Count 227, MPV 9.5 10/08/22 05:02: Sodium 140, Potassium 4.0, Chloride 109 H, Carbon Dioxide 26.0, Anion Gap 5, BUN 16, Creatinine 0.75, Estim Creat Clear Calc 114.96, Est GFR (MDRD) Af Amer 137, Est GFR (MDRD) Non-Af 113, BUN/Creatinine Ratio 21.4 H, Glucose 93, Calcium 8.4 L, Total Bilirubin 1.20 H, AST 78 H, ALT 90 H, Alkaline Phosphatase 56, Total Protein 6.1 L, Albumin 3.3, Globulin 2.8, Albumin/Globulin Ratio 1.2 D/C Instructions Discharge Diet: Low fat / Low cholesterol and 2000 mg Sodium Diet Weight Bearing Status: Weight bearing as tolerated Call your doctor if you observe: Fever of 101 or Higher, Coldness, Increased Pain, Numbness or Tingling, Change in Color, Inability to urinate, Inability to have a bowel movement, Shortness of breath, Dizziness, Fainting spells, Swelling in the ankles, Chest pain, Prolonged hiccupping, Increased palpitations (irregular heartbeat) and Calf discomfort When: IN 2 WEEKS Meaningful Use Info Meaningful Use Diagnoses (Choose all that apply): AMI AMI/Post PCI/Angioplasty Aspirin given w/in 24hrs of arrival?: Yes ASA at discharge?: Yes Statins at discharge?: Yes Kenneth/ARB at discharge?: No Reason Kenneth/ARB not ordered:: Hypotension Beta Jennifer at discharge?: Yes Done w/ Acute ME measure.: Yes Discharge Plan Admission Admit Date/Time: 10/04/22 14:14 Primary Reason for Your Visit: NSTEMI, triple-vessel CAD Attending Provider: Edu Matta Primary Care Provider: Rylee Boss NP Consulting Providers: Tobias Steward ; Irma Guy Discharge Orders/Prescriptions Prescriptions: New atorvastatin 80 mg Tablet 80 mg PO QHS 30 Days Qty: 30 2RF nicotine 14 mg/24 hr Patch 24 Hour 14 mg transdermal DAILY 30 Days Qty: 30 0RF amlodipine 2.5 mg Tablet 2.5 mg PO DAILY 30 Days Qty: 30 0RF aspirin 81 mg Tablet,Delayed Release (Dr/Ec) 81 mg PO BREAKFAST 30 Days Qty: 30 4RF nitroglycerin 0.4 mg Tablet, Sublingual 0.4 mg sublingual Q5M PRN (Reason: CHEST PAIN) Qty: 30 0RF amoxicillin-pot clavulanate 875-125 mg Tablet 875 mg PO BID 7 Days Qty: 14 0RF metoprolol tartrate 25 mg Tablet 12.5 mg PO BID 30 Days Qty: 60 2RF Brilinta 90 mg Tablet 90 mg PO BID 30 Days Qty: 60 2RF Continued magnesium 250 mg Tablet 250 mg PO QHS tobramycin-dexamethasone 0.3-0.1 % drops,suspension 1 drp LEFT EYE 4X/DAY Label Comments: INSTILL ONE DROP IN THE LEFT EYE FOUR TIMES DAILY FOR 10 DAYS Discontinued atorvastatin 10 mg tablet 10 mg PO DAILY Label Comments: take 1 tablet by mouth at bedtime for cholesterol Referrals / Follow Up: Tobias Steward MD [Med Staff - Active Staff] - Within 2 Weeks Care Physician,No Primary [Non-Staff] - Rylee Boss NP, SIGN WRITER HAND-C [Primary Care Provider] - In 1 Week Disposition Disposition (needs filled in before D/C Order can be placed): Home, Self Care Charges/Coding Visit Charges Inpatient E&M: 14145 Disch Hosp >30min
[2022-10-08] MEDS: Senna/Docusate Sodium 1 Tablet 2 TABLET PO (08:52)
--- NOTE | 2022-10-08 09:36 | CASEMGMT ---
[employer] savings card provided to patient. Patient had no further questions or concerns at this time.
--- NOTE | 2022-10-08 10:00 | EKG12_ITS ---
Test Reason : MORNING EKG Blood Pressure : / mmHG Vent. Rate : 043 BPM Atrial Rate : 043 BPM P-R Int : 174 ms QRS Dur : 104 ms QT Int : 446 ms P-R-T Axes : 014 025 047 degrees QTc Int : 376 ms Marked sinus bradycardia Abnormal ECG When compared with ECG of 07-OCT-2022 04:57, No significant change was found Confirmed by CHARLES BATES, TICO ([id number]), scientific publications editor REN CHRISTY ([id number]) on 10/14/2022 8:58:02 AM Referred By: KERI Confirmed By:TICO SOTO MD
[2022-10-08 11:28] VITALS: O2SAT 96
== END 2022-10-08 12:13 | disposition home or self-care (01) | DRG 247 ==
LOC: ED 14:05 → PCU 15:27
PROVIDERS: Internal Medicine Cardiovascular Disease; Admitting Provider Internal Medicine; Emergency Provider Emergency Medicine; PCP Nurse Practitioner; Visit Provider Internal Medicine
DX: I21.4 Non-ST elevation (NSTEMI) myocardial infarction (principal); L03.213 Periorbital cellulitis; E66.9 Obesity, unspecified; I25.110 Atherosclerotic heart disease of native coronary artery with unstable angina pectoris; E78.00 Pure hypercholesterolemia, unspecified; F17.290 Nicotine dependence, other tobacco product, uncomplicated; R73.9 Hyperglycemia, unspecified; R03.0 Elevated blood-pressure reading, without diagnosis of hypertension; Z68.34 Body mass index [BMI] 34.0-34.9, adult; Z79.01 Long term (current) use of anticoagulants; Z79.82 Long term (current) use of aspirin; Z79.899 Other long term (current) drug therapy; Z82.49 Family history of ischemic heart disease and other diseases of the circulatory system
CPT/HCPCS: 36415; 71046; 80048; 80053; 80061; 83036; 83735; 84100; 84443; 84484; 85025; 85027; 85347; 92928; 93005; 93306; 93458; 94668; 97802; 99152; 99153; 99252; 99285; J7030; Q9957; Q9967; A4216; C1725; C1874; C8929; C9600; G0463

== ENCOUNTER 2022-10-28 10:59 | Observation (INO) | payer BC, SELFPAY ==
[2022-10-27 07:34] VITALS: BMI 34.3
[2022-10-28] VITALS (12 sets, daily range): BP systolic 108–126; BP diastolic 60–79; PULSE 45–96; RESP 16–22; TEMP 36.6–36.9; O2SAT 96–100
--- NOTE | 2022-10-28 10:36 | CL.I_ITS ---
Patient Name: VARGAS CARPENTER Study Date: 10/28/2022 Performing: Garland Nina MD Ht: 72 inches 182.88 cm : 1960 Wt: 253 lbs 114.76 kg Age: 62 Gender: male BSA: 2.35 PROCEDURE(S) PERFORMED IC12-(33821/C9600)MAYI W/WO PTCA, SINGLE CORONARY ARTERY CLINICAL PROFILE AND CO-MORBIDITIES Indications: Stable Known CAD Heart Failure: None CONCLUSIONS post-dilated using 3.5 mm balloon RECOMMENDATIONS ASA Indefinitley Brilinta for at least 12 months DESCRIPTION OF PROCEDURE The patient arrived to the procedure lab. The risks and benefits of the procedure as well as a full description of our services here and current unavailability of surgical backup were fully explained to the patient and/or their significant other prior to the catheterization. The Timeout was completed, verifying the correct patient and procedure. The patient's procedural site was prepped and draped in the usual fashion. Local anesthetic was given subcutaneously to right radial region with Lidocaine 2%. Using a modified Seldinger technique, arterial access was obtained via the right radial artery, a 6Fr sheath was inserted.. Right Coronary Artery selective angiography was then performed in multiple views using a 6 Fr. JR 4 catheterThe images were reviewed and options discussed. A decision was then made to proceed with an Intervention, IVUS or other adjunct procedure. jr4 Guide catheter was inserted and engaged into the RCA. runthrough Guide wire was advanced to the RCA. julian 3.0 x 22 Drug Eluting stent was advanced across the lesion in the right coronary, proximal. Angiogram performed post stent deployment. julian 3.0 x 26 Drug Eluting stent was advanced across the lesion in the right coronary, proximal. Angiogram performed post stent deployment. nc emerge 3.5 x 20 Balloon catheter was inserted post stent. 4.0 x 8 Balloon catheter was inserted post stent. PTCA balloon inflated at 8 atms for 10 secs. PTCA balloon inflated at 8 atms for 6 secs. nc euphora 4.0 x 6 Balloon catheter was inserted post stent. Angiogram performed post balloon dilatation. Angiogram performed post balloon dilatation. The arterial sheath was pulled and a TR Band was applied for hemostasis INTERVENTION INFORMATION LESION SITE: RCA (Proximal) Lesion Complexity: High/C, lesion length: 40 mm Pre Stenosis: 80 % Pre intervention SAMANTHA flow: 3 PROCEDURE: Drug Eluting Stent with post dilatation Post Stenosis: 0 % Post intervention SAMANTHA flow: 3 Lesion Devices: Terumo .014 180cm Runthrough Extra Floppy straight Cordis 6 Fr JR4 100cm Guide Catheter Medtronic Resolute Julian RX MAYI 3.0x22 Medtronic Resolute Julian RX MAYI 3.0x26 Luiz Sci NC EMERGE MR 3.50x20 BALLOON Medtronic NC EUPHORA RX 4.0x06 BALLOON COMPLICATIONS No Complications PROCEDURE MEDICATIONS Versed 1 mg IV Dilaudid 50 mg IV Oxygen: 2 L/min via nasal cannula Heparin 8000 unit(s) IV 10/28/2022 09:47:36 Nitro 100 mcg IC 10/28/2022 10:03:21 Nitro 100 mcg IC 10/28/2022 10:03:21 Nitro 200 mcg IC 10/28/2022 10:23:18 IV Bolus: .9 NaCl 500 ml total 10/28/2022 09:52:52 SUMMARY OF HEMODYNAMIC DATA Time AIR REST ECG 07:52:14 AO 102/52 (75) SA 09:54:18 Signed By Garland Nina MD On 10/28/2022 10:35:45 Garland Nina MD
[2022-10-28 11:12] LABS: ACT Activated Clotting Time 311 sec (74-137)
[2022-10-28] MEDS: 0.9% Normal Saline 1,000 ML 150 ML IV (11:25)
--- NOTE | 2022-10-28 11:43 | CRPHASE1 ---
Patient Communication Former Patient:: Phase I PHII Cardiac Rehab Discussed with Patient:: Yes Guide to Cardiac Rehab Given to Patient:: Yes Cardiac Rehab Facility Choice List Given to Patient:: Yes Classified Advertising Supervisor:: Garland Nina Phase II Cardiac Rehab:: Yes Sessions:: 36 sessions - 3 days/wk, 12 weeks Cardiac Rehabilitation Info Cardiac Rehabilitation Program Information: Cardiac Rehab The cardiac rehab team at [facility] consists of highly skilled exercise physiologists, nurses, respiratory therapists and physicians working together with you. Our purpose is to help you have a full recovery and achieve the goals you set for yourself. Over the years many of our patients have returned to activities they assumed they would never do again! We can help restore your confidence and motivation to make lifestyle changes that can have a significant impact on your health and quality of life! We can help answer questions and concerns you may have about exercise, lifestyle, medications, diet, stress and anxiety which are common following a hospitalization. WE monitor ECG and vital signs during exercise and discuss your progress with you and report to your physician(s). Cardiac Rehab is proven to help reduce readmissions, improve functional capacity and lower recurrence of problems with your heart. Our Cardiac Rehab program is Certified by the [place] [employer] (AACVPR) and Accredited by the [place] [employer] through our [facility]. You can contact us at . We invite you to call us with your questions or to get started in our program. If you have other questions or concerns be sure to ask your physician/provider during your follow-up visit. WE look forward to seeing you!
--- NOTE | 2022-10-28 11:48 | CRPH1.INSTRU ---
General Education CAD and cardiac anatomy and function:: Patient communicates acknowledgment Explanation of diagnoses and procedures:: Patient communicates acknowledgment Sign/Symptoms of SC:: Patient communicates acknowledgment Antiplatelet therapy: Patient communicates acknowledgment Proper use of NTG-SL: Patient communicates acknowledgment Emergency procedures and activation of EMS: Patient communicates acknowledgment Compliance of all prescribed medications: Patient communicates acknowledgment Smoking Patient Nicotine/Smoking Risk Factors Are:: Cigarettes Recommendations Include:: Participation in a smoking cessation program Nicotine/Smoking Response Code:: Patient communicates acknowledgment Dyslipidemia Patient Dyslipidemia Risk Factors Are:: Total Cholesterol Recommendations Include:: Lipid profile not available Dyslipidemia Response Code:: Patient communicates acknowledgment Overweight/Obesity Patient Overweight/Obesity Risk Factors Are:: Obesity - > or = 30 Recommendations Include:: Weight loss of 5-10%, Reduced calorie diet, Exercise 5-7 times/week Overweight/Obesity:: Patient communicates acknowledgment Hypertension Recommendations Include:: Maintain BP <130/85 Hypertension:: Patient communicates acknowledgment Heart Disease Patient Heart Disease Risk Factors Are:: Previous cardiac event Recommendations Include:: Educated family members of their risk Heart Disease Response Code:: Patient communicates acknowledgment Diabetes Patient Diabetes Risk Factors Are:: No documented hx of diabetes Diabetes:: Patient communicates acknowledgment Metabolic Syndrome Recommendations Include:: Does not meet criteria Metabolic Syndrome Response Code:: Patient communicates acknowledgment Sedentary Patient Sedentary Risk Factors Are:: Lack of regular exercise Recommendations Include:: Benefits of regular exercise, Discussed home walking program, Monitored Outpatient Cardiac Rehab Sedentary Response Code:: Patient communicates acknowledgment Stress Recommendations Include:: Identification of stressors, and assessment of coping skills Stress Response Code:: Patient communicates acknowledgment
--- NOTE | 2022-10-28 19:23 | NURSING ---
Spoke with pharmacist regarding Tylenol and allergy to procaine. Okay to order.
[2022-10-28] MEDS: Acetaminophen 500 MG Tablet PO (19:35)
[2022-10-28] MEDS: TICAGRELOR 90 MG TABLET PO (19:37)
[2022-10-28] MEDS: Atorvastatin Calcium 80 MG Tablet PO (19:37)
--- NOTE | 2022-10-28 19:38 | NURSING ---
Pt requesting meds to be given at this time.
[2022-10-29 03:00] VITALS: BP 117/75; PULSE 58; RESP 16; TEMP 36.1; O2SAT 100
[2022-10-29 05:46] LABS: Hematocrit 45.1 % (40-54); Hemoglobin 15.3 g/dL (13.0-16.5); Mean Corp Hgb Conc 33.9 g/dL (32-36); Mean Corpuscular Volume 88.4 fL (80-94); Mean Platelet Vol. 8.7 fl (6.2-12.0); Platelet Count 238 K/mm3 (150-450); White Blood Count 7.5 K/mm3 (4.4-11.0)
[2022-10-29 06:23] LABS: ALB/GLOB Ratio 0.9 RATIO (0.9-2.4); AST(SGOT) 15 U/L (15-37); Alanine Aminotransfer ALT/SGPT 22 U/L (16-61); Albumin, Serum 3.1 g/dL (3.2-5.0); Alkaline Phosphatase 76 U/L (45-117); Anion Gap 3 (5-15); BUN 14 mg/dL (7-18); BUN/Creat Ratio 17.4 RATIO (10-20); Calcium,Total 8.6 mg/dL (8.5-10.1); Chloride 111 mmol/L (98-107); EST Glomerular Filtration Rate 104 mL/min (>60); Est Glom Filt Rate - Afr Amer 126 mL/min (>60); Estimated Creatinine Clearance 107.78 ml/min; Globulin 3.3 g/dL (2.2-4.2); Glucose 118 mg/dL (74-106); Potassium 4.3 mmol/L (3.5-5.1); Protein, Total 6.4 g/dL (6.4-8.2); Sodium Level 141 mmol/L (136-145)
[2022-10-29 07:07] VITALS: O2SAT 96
[2022-10-29 08:32] VITALS: BP 116/77; PULSE 51; RESP 16; TEMP 36.4; O2SAT 97
[2022-10-29] MEDS: Aspirin E.C. 81 MG Tablet PO (08:44)
[2022-10-29] MEDS: amLODIPine 2.5 MG Tablet PO (08:44)
[2022-10-29] MEDS: TICAGRELOR 90 MG TABLET PO (08:44)
--- NOTE | 2022-10-29 09:54 | PHA.DC.MR ---
Pharmacy Service has performed discharge medication reconciliation for this patient. The patient's discharge medication list was reviewed for discrepancies and discrepancies were resolved. Home Medications amlodipine 2.5 mg tablet 2.5 mg PO DAILY 30 days #30 tabs 10/08/22 aspirin 81 mg tablet,delayed release 81 mg PO BREAKFAST 30 days #30 tabs 10/08/22 atorvastatin 80 mg tablet 80 mg PO QHS 30 days #30 tabs 10/08/22 nitroglycerin 0.4 mg sublingual tablet 0.4 mg sublingual Q5M PRN CHEST PAIN #30 tabs 10/08/22 ticagrelor 90 mg tablet (Brilinta) 90 mg PO BID 30 days #60 tabs 10/08/22
[2022-10-29 12:10] VITALS: BP 122/77; PULSE 60; RESP 16; TEMP 36.4; O2SAT 100
== END 2022-10-29 12:12 | disposition home or self-care (01) ==
LOC: CLSP 11:07 → PCU 11:07
PROVIDERS: Admitting Provider Internal Medicine Cardiovascular Disease; PCP Nurse Practitioner; Referring Provider Internal Medicine Cardiovascular Disease; Visit Provider Internal Medicine Cardiovascular Disease
DX: I25.110 Atherosclerotic heart disease of native coronary artery with unstable angina pectoris (principal); Z82.49 Family history of ischemic heart disease and other diseases of the circulatory system; M19.90 Unspecified osteoarthritis, unspecified site; E78.00 Pure hypercholesterolemia, unspecified; Z79.899 Other long term (current) drug therapy; F17.290 Nicotine dependence, other tobacco product, uncomplicated
CPT/HCPCS: 36415; 80053; 85027; 85347; 92928; 93005; 96360; 96361; 99152; 99153; 99221; 99406; C1725; J7030; J7040; Q9967; C1769; C1874; C1887; C1894; C9600; G0378

== ENCOUNTER → 2022-11-17 | Outpatient (CLI) | payer BC, SELFPAY ==
--- NOTE | 2022-11-17 14:05 | CR.HP_ITS ---
CR - History & Physical General Arrival date:: 11/17/22 Arrival time:: 14:05 Date of Referral:: 10/28/22 Date of CR Evaluation:: 11/17/22 Referring Physician: Dr. Tobias Steward Primary Diagnosis: PCI with stent History of Present Cardiac Event Onset Date PTCA or coronary stenting:: Yes Vessel: LAD, left circumflex, rca Medications Ambulatory Orders Medication Instructions Recorded aspirin 81 mg tablet,delayed 81 mg PO BREAKFAST 30 days #30 tabs 10/08/22 release atorvastatin 80 mg tablet 80 mg PO QHS 30 days #30 tabs 10/08/22 nitroglycerin 0.4 mg sublingual 0.4 mg sublingual Q5M PRN CHEST 10/08/22 tablet PAIN #30 tabs ticagrelor 90 mg tablet (Brilinta) 90 mg PO BID 30 days #60 tabs 10/08/22 amlodipine 2.5 mg tablet 2.5 mg PO DAILY #90 tabs 10/30/22 Allergies Allergies procaine [From Novocain] Allergy (Verified 10/31/22 13:04) Anaphylaxis Sleep Disorder Evaluation Hx of Sleep Apnea: No Do you snore loudly (louder than talking or can be heard through closed doors)?: No Do you often feel tired/ fatigued/ sleepy during daytime?: No Has anyone observed you stop breathing during sleep?: No History of Hypertension (for STOP score): No STOP Results: Negative Advanced Directives Advanced Directives Power of Chief Environmental Commitment Officer: No Living Will: No Advance Directives Information Provided: No Advance Directives on File: No DNR Order?:: No Past Medical History Covid-19 Screening Physicial Symptoms Other Clinical Concerns Exposure Risk Pertinent Comorbidities Has a serious heart condition:: Yes Past Medical Illness Medical History Arthritis Coronary artery disease Diverticulosis of sigmoid colon Hypercholesterolemia Non-ST elevated myocardial infarction (non-STEMI) Presence of stent in coronary artery (~10/07/22) Tobacco user Past Surgical History Surgical History (Reviewed 10/31/22 @ 13:40 by Brown Pandya [employer], [employer]) History of prostatectomy History of tonsillectomy Hx of right coronary artery stent placement (~10/28/22) Presence of coronary angioplasty implant and graft (~10/07/22) Surgical History: appendectomy and tonsillectomy Family History Summary Family History Grandfather Myocardial infarction Father Myocardial infarction Social History Smoking History Smoking Status: Current every day smoker (pt is still vaping) Years Smokin Packs Smoked per Day: 2 Hx Smoking Cessation Date: 05/11/12 Hx Tobacco Use: Yes Alcohol Use Alcohol Usage: No Occupation Occupation (List type of work in comments):: Retired Hobbies, Recreation, Social Activities Hobbies: Other (cars) Recreational Activities: I am able to engage in all my recreational activities Social Environment Status Marital Status: Current Living Arrangements Living Environment:: Spouse Children How many children do you have?: 1 Do any of your children live nearby?: Yes Safety Do you feel safe in your surroundings?: Yes Assistance Do you need any assistance at home?: no Review of Systems Review of Systems Hints Review of Present Symptoms: Reports Shortness of Breath with Exertion, Fatigue, Appetite - Normal, Appetite - Special Diet and Sleep - Normal; Denies Shortness of Breath at Rest, PVD, Operative Discomfort, Angina, Wound Healing, Dizziness/Lightheadedness, Heart Arrhythmia/Irregularities or Sexual Changes Pain Is Patient Pain Free?: No Pain Location: other (knee) Pain Level: 06/20 Risk Factor Assessment Vital Signs Pulse Ox: 95 Blood Pressure: 110/66 Pulse Pulse Rate: 78 Obesity Height: 6 ft Weight:: 253 lb Weight in Pounds: 253.0 lbs Body Mass Index (BMI): 34.3 Physical Inactivity Physical Inactivity: Recreational activity Risk Stratification Risk Guidelines: Moderate Risk: Risk Factor for Diabetes, Risk Factor for Obesity, Risk Factor for Hypertension, Risk Factor for Sedentary Lifestyle and Risk Factor for Depression and Highest Risk: Risk Factor for Smoking and Risk Factor for Dyslipidemia For Smoking Smoking Risk Guidelines For Dyslipidemia Dyslipidemia Risk Guidelines For Diabetes Mellitus Diabetes Risk Guidelines For Obesity/Overweight Obesity/Overweight Risk Guidelines For Hypertension Hypertension Risk Guidelines For Sedentary Lifestyle Sedentary Lifestyle Risk Guidelines For Depression Depression Risk Guidelines Family History Family History Grandfather Myocardial infarction Father Myocardial infarction Motivation Motivation to Participate On a scale of 1 to 10, how prepared are you to commit to attending program?: 10 What do you see as barriers to successfully being able to complete the program?: nothing What do you see as the benefits of succesfully completing the program? In other words, what do you hope to get out of participating in the program?: more energy Are there issues you are dealing with that will interfere with completing the program?: none Do you have a spouse or signficant other, family or friends who will help support you to complete the program?: yes
--- NOTE | 2022-11-17 14:13 | CR.ITP_ITS ---
Diagnosis General Information Admitting Diagnosis: PCI with stent Personal Learning Style:: Audio/Visual Barriers to Learning: No Barriers Stage of change r/t lifestyle modifications:: Contemplation Gave educational material for:: Treating Heart Disease, How The Heart Works, What it means to have Heart Disease, How Coronary Artery Disease is Diagnosed, Heart Procedures, What Heart Medications Do, Risk Factors & Modifications, Living an Active Life, Nutrition, Emotions & Heart Disease, Stress Management & Relaxation and Sleep Disorders & Heart Disease Education/Goals Cardiac Rehabilitation Goals Personal Goals: Initial Assessment: Improve energy level and Control risk factors (learn risk factor modification) Scale for measuring improvement of personal goals Diagnosis & Disease Process Outcomes/Goals: Pt IDs own risk factors & lifestyle modifications by Session 10, Verbalizes symptoms of angina & response by session 3., Pt independently manages and Other Additional Outcomes/Goals: Plan/Interventions: Assist Pt to ID & engage in lifestyle modification to reduce CVD risk, Instruct on individual risk factors, Review symptoms of angina & emergency actions, Review secondary diagnosis & identify educational needs. and Other see comment 30 day Reassessments:: Not Met 30 day Reassessments:: Not Met 30 day Reassessments:: Not Met 30 day Reassessments:: Not Met Final Reassessments:: Not Met Safety Referral to Physical Therapy: No Referral to [facility] Case Management: No Fall Risk Assessed:: Yes Assistive Devices:: None Exercise - Initial Assessment Visit Date of Eval: 11/17/22 (initial eval ) Mets: Pre-: >3 METS for 30 minutes by discharge, >5 METS for 30 minutes by discharge, >7 METS for 30 minutes by discharge and Unable to meet goal due to: (see comment below) Physician Prescribed Exercise Modalities: Treadmill, Rower, Airdyne, NuStep, SciFit and Lateral M[place]ain Frequency: 2x/week for 18 weeks [36 sessions] and 3x/week for 12 weeks [36 sessions] Intensity: 60-80% of age predicted maximum heart rate reserve Current METSs:: 3.0 Target Heart Rate:: 96-112 EKG Type: SR Outcomes & Goals Goals:: Verbalizes understanding of THR, RPE & goal METS by session 6, Documents in home exercise log/reports 30 min aerobic 5 day/wk by DC, Demonstrates accurate pulse taking by DC and Other additional outcome/goals: see below Intervention & Plan Exercise Program Goals: Instruct on personal THR & RPE, Instruct on MET level & personal MET goal, Show patient to take own pulse /validate performance until accurate, Instruct on home exercise and Other additional plan/int Physical Activity Home Exercise Physical Activity - Home Exercise: Safe Exercise, Warm-up, Self-monitoring, Cool-Down, Home Exercise > 30 min Daily and Sitting Time <3 hours/daily Outcomes & Goals Outcomes/Goals: Demonstrates correct Warm-up/exercise Cool-Down (S3) if = 2.5 METs, Verbalizes symptoms of exercise intolerance by Session 3 (S3), Demonstrate safe equipment use (S3) & follows exercise prescrition (6) and Other: See below Intervention & Plan Plan/Intervention: Instruct warm-up & cool-down if exercising at > 2 METs, Instruct on symptoms of exercise intolerance & actions to take, Instruct & monitor on saf, Assess intial functional capacity & safety risk and Other See below Nutrition - Initial Assessment Program Goals Nutrition Program Goals Patient has diagnosis of Hyperlipidemia (ICD E78)?: Yes Visit Date of Eval: 11/17/22 (initial eval ) Cholesterol/Lipids (Other Core Measures) Determine presence & major risk factors that modify LDL goal: Cigarette smoking, Hypertension or hypertensive medication, Low HDL cholesterol <40 mg/dL*, Family history of premature CHD in Male < 55 years: female <65 yearsFa and Age men > 45 years; women >/= 55 years Outcomes/Goals: Pt IDs own risk factors & lifestyle modifications by Session 10, Verbalizes symptoms of angina & response by session 3., Pt independently manages and Other Additional Outcomes/Goals: Intervention/Plan: Advocate for lipid panel cholesterol medication if applicable, Instruct on personal lipid levels & lipid goals/NCEP guidelines, Instruct on cholesterol and Other additional plan/int Diabetes (Other Core Measures) Diabetes Type: Not Applicable Weight Mgt (Other Care) Height: 6 ft Weight:: 253 lb BMI: 34.3 Diagnosis Overweight/Obesity BMI> 30% ICD-10 E66: Yes Diagnosis High BMI/Morbid Obesity BMI> 35% ICD-10 Z68: No Outcomes/Goals: Pt sets, maintains & shows weight loss goal & trend during rehab and Other additional outcomes/goals Intervention/Plan: Instruct on ideal BMI & set weight loss goal w/patient, Assist pt to ID & incorporate diet changes for weight loss by S9, Refer to Structured Weight Loss program as appropriate, Encourage goal of using 250- 300dcal per session for weight loss and Other additional plan/interventions Healthy Eating Habits Will attend diet classes:: Yes Outcomes/Goals:: Consume diet rich in vegs,fruits,whole grain/high fiber,fish,lean meat, Limit sat/trans fats,cholesterol & added salts & sugars and Other additional outcome/goals: Intervention/Plan:: Assess current eating habits and Other Additional plan/interventions Education Gave educational materials for:: Signs & symptoms of hypoglycemia, Signs & symptoms of hyperglycemia, Relate diabetes to coronary artery disease and Healthy eating Core - Initial Assessment Visit Date of Eval: 11/17/22 (initial eval ) Medication Compliance Preventative Medication(s):: Aspirin, Ticagrelor/P2Y12 inhibitor, Statin/lipid and Beta lou H/O mental health issues: depression, anxiety, or addiction?: No Doesn?t believe in the benefits of treatment?: No Has a concern about medication side effects?: No Expresses concern over the cost of medications?: No Outcomes/Goals: Verbalizes medications,desired effect & common side effects @ DC, Pt self-reports following medication regimen, Keeps card in wallet w/medications listed by DC and Other additional outcome/goals: Interventions/plans: Instruct on medication effects & side effects, Review medication list w/patient every two weeks, Instruct importance of taking meds as ordered & assist problem solving and Other additional Tobacco Use Tobacco Use: Vapor How long ago did you quit using tobacco products?: Greater than or equal to 6 months ago Years Smokin Do you use smokeless tobacco?: No Hypertension [place] [employer] Hypertension Guidelines Outcomes/Goals: Able to verbalize/achieve optimal blood pressure <130/80, Incorporates diet changes & exercise for blood pressure control by DC and Other additional outcomes/goals Interventions/plan: Instruct on optimal blood pressure, hypertension & medications, Instruct on effects of sodium, alcohol, stress, exercise &hypertension and Other additional plan/interventions Tobacco Cessation Referral Smoking Cessation Referral:: No Individual Education/Counseling:: No Education Schedule Given:: Yes Psychosocial - Initial Assess VIsit Date of Eval: 11/17/22 (initial eval) History of previous Mental disease:: No Target Goals Target Goals Patient Health Questionnaire PHQ-9 Screening Initial Assessment: 1. Little interest or pleasure in doing things: Not at all 2. Feeling down, depressed, or hopeless: Not at all 3. Trouble falling or staying asleep, or sleeping too much: Not at all 4. Feeling tired or having little energy: More than half the days 5. Poor appetite or overeating: Not at all 6. Feeling bad about yourself -- or that you are a failure or have let yourself or your family down: Not at all 7. Trouble concentrating on things, such as reading the newspaper or watching television: Not at all 8. Moving or speaking so slowly that other people could have noticed. Or the opposite - being so fidgety or restless that you have been moving around a lot more than usual: Not at all 9. Thoughts that you would be better off , or of hurting yourself in some way: Not at all How difficult have these problems made it for you to do your work, take care of things at home, or get along with other people?: Not difficult at all Total Score: 2 BRE-Q SV Test Statements CAD is a disease of the arteries in the heart: False Examples of risk factors for heart disease: False Angina is chest pain or discomfort: I Don't Know The benefits of resistance training include: I Don't Know Eating more meat and dairy products: I Don't Know Anti-platelet medications such as aspirin are important: I Don't Know The only effective way to manage stress: False An exercise warm-up slowly increases heart rate: I Don't Know Prepared, processed foods usually have high sodium: True Depression is common after a heart attack: I Don't Know The statin medications lower cholesterol: I Don't Know To control blood pressure, lower the amount of sodium: True If someone gets chest discomfort during walking: False Transfats are partially hydrogenated vegetable oils: I Don't Know Sleep apnea that is not treated increases the risk: I Don't Know To control cholesterol, one should become a vegetarian: False Someone knows if he/she is exercising at the right level: I Don't Know Diabetes cannot be prevented with exercise & health eating: I Don't Know Stress is a large risk for heart attack: I Don't Know A diet that can help lower blood pressure is rich in: I Don't Know Total Score Total Correct Responses: 6 Self-Efficacy 6-Item Scale Initial Assessment: We would like to know how confident you are in doing certain activities. Please select your confidence level for: Fatigue Select Number: 5 Physical Discomfort or Pain Select Number: 5 Emotional Distress Select Number: 10 Other Symptoms or Health Problems Select Number: 5 Different Tasks and Activities Select Number: 5 Medication Select Number: 10 Total Score:: 6 Nutrition Survey Nutrition Survey Instructions Scoring Instructions Nutrition Survey Initial: Have you lost >10 lbs over the past 2 months without trying?: No Are you following a special diet at home for diabetes, low fat, or low salt?: Yes Are you interested in meeting with a dietitian for help understanding your diet?: No Do you eat less than 3 meals a day?: Yes Do you eat fatty meats (goyal, sausage, ribs, etc), fried foods, desserts, large amounts of salad dressings, margarine, butter, or cheese most days?: No Do you have food allergies? [Enter types in comment field]: No Do you eat in restaurants more than 3 times a week?: No Do you season food with salt, seasoning salt, or garlic salt?: No Do you used canned, boxed, frozen meals, or soups, seasoning packets?: No Total Score:: 2 Exercise - Final/Discharge Physician Prescribed Exercise Modalities: Treadmill, Rower, Airdyne, NuStep, SciFit and Lateral Pharmacy Director Frequency: 2x/week for 18 weeks [36 sessions] and 3x/week for 12 weeks [36 sessions] Intensity: 60-80% of age predicted maximum heart rate reserve Current METSs:: 3.0 Target Heart Rate:: 96-112 Nutrition - 30-Day Assessment Weight Mgt (Other Care) Height: 6 ft Weight:: 253 lb BMI: 34.3 Nutrition - 60-Day Assessment Weight Mgt (Other Care) Height: 6 ft Weight:: 253 lb BMI: 34.3 Core - 30-Day Assessment Tobacco Use Years Smokin Psychosocial - 30-Day Assess Target Goals Target Goals Psychosocial - 60-Day Assess Target Goals Target Goals Psychosocial - 90-Day Assess Target Goals Target Goals Psychosocial - Final Assessmen Target Goals Target Goals Nutrition - 90-Day Assessment Weight Mgt (Other Care) Height: 6 ft Weight:: 253 lb BMI: 34.3 Nutrition - Final Assessment Program Goals Patient has diagnosis of Hyperlipidemia (ICD E78)?: Yes Weight Mgt (Other Care) Height: 6 ft Weight:: 253 lb BMI: 34.3
[2022-11-17 14:32] VITALS: BP 110/66; PULSE 78; O2SAT 95; BMI 34.3
[2022-11-17 14:52] VITALS: BMI 34.3
== END | disposition home or self-care (01) ==
LOC: CR 13:51
PROVIDERS: PCP Nurse Practitioner; Referring Provider Internal Medicine Cardiovascular Disease; Visit Provider Internal Medicine Cardiovascular Disease
DX: Z00.00 Encounter for general adult medical examination without abnormal findings (principal)

== ENCOUNTER 2022-12-08 08:00 | Outpatient (RCR) | payer BC, SELFPAY ==
[2022-11-17 14:52] VITALS: BMI 34.3
== END 2022-12-08 23:59 ==
LOC: CR 08:00
PROVIDERS: PCP Nurse Practitioner; Referring Provider Internal Medicine Cardiovascular Disease; Visit Provider Internal Medicine Cardiovascular Disease
DX: I25.10 Atherosclerotic heart disease of native coronary artery without angina pectoris (principal); Z95.5 Presence of coronary angioplasty implant and graft
CPT/HCPCS: 93798

== ENCOUNTER 2023-01-07 08:00 | Outpatient (RCR) | payer BC, SELFPAY ==
[2022-11-17 14:52] VITALS: BMI 34.3
--- NOTE | 2022-12-15 08:03 | CR.ITP_ITS ---
Exercise - Initial Assessment Visit Session #:: 11 Nutrition - Initial Assessment Weight Mgt (Other Care) Height: 6 ft Weight:: 254 lb BMI: 34.4 Core - Initial Assessment Tobacco Use Years Smokin Psychosocial - Initial Assess Target Goals Target Goals Referral to Behavioral Health PS - Interventions: Yes: Attend Stress Management Classes and No: Referral to Behavioral Health if PHQ-9 score >9:, No: Referral to [facility] and No: Referral to Physician if PHQ-9 if score is 5-9: Patient Health Questionnaire PHQ-9 Screening 30-Day Re-eval Assessment: 1. Little interest or pleasure in doing things: Not at all 2. Feeling down, depressed, or hopeless: Not at all 3. Trouble falling or staying asleep, or sleeping too much: Not at all 4. Feeling tired or having little energy: Several days 5. Poor appetite or overeating: Not at all 6. Feeling bad about yourself -- or that you are a failure or have let yourself or your family down: Not at all 7. Trouble concentrating on things, such as reading the newspaper or watching television: Not at all 8. Moving or speaking so slowly that other people could have noticed. Or the opposite - being so fidgety or restless that you have been moving around a lot more than usual: Not at all 9. Thoughts that you would be better off , or of hurting yourself in some way: Not at all How difficult have these problems made it for you to do your work, take care of things at home, or get along with other people?: Not difficult at all Total Score: 1 Self-Efficacy 6-Item Scale 30-Day Re-eval Assessment: We would like to know how confident you are in doing certain activities. Please select your confidence level for: Fatigue Select Number: 7 Physical Discomfort or Pain Select Number: 7 Emotional Distress Select Number: 10 Other Symptoms or Health Problems Select Number: 8 Different Tasks and Activities Select Number: 7 Medication Select Number: 10 Total Score:: 8 Nutrition Survey Nutrition Survey Instructions Scoring Instructions Exercise - 30-day Assessment Visit Date of Eval: 12/15/22 Session #:: 11 Physician Prescribed Exercise Modalities: Treadmill, Rower and NuStep Frequency: 3x/week for 12 weeks [36 sessions] Intensity: 60-80% of age predicted maximum heart rate reserve Duration: 30 - 45 minutes Current METSs:: 5.5 Target Heart Rate:: 120-136 Current RPE:: 12-13 Maximum Excercise HR:: 42:28 Resting Blood Pressure: 120/80 Maximum Exercise Blood Pressure: 160/90 EKG Type: NSR to sinus tach withoccasional PVCs, rare PAC. Outcomes & Goals Goals:: Verbalizes understanding of THR, RPE & goal METS by session 6, Documents in home exercise log/reports 30 min aerobic 5 day/wk by DC and Demonstrates accurate pulse taking by DC Intervention & Plan Exercise Program Goals: Instruct on personal THR & RPE, Instruct on MET level & personal MET goal, Show patient to take own pulse /validate performance until accurate and Instruct on home exercise 30-day Reassessments 30 day Reassessments:: Met Physical Activity Home Exercise Physical Activity - Home Exercise: Safe Exercise, Warm-up, Self-monitoring, Cool-Down, Home Exercise > 30 min Daily and Sitting Time <3 hours/daily Outcomes & Goals Outcomes/Goals: Demonstrates correct Warm-up/exercise Cool-Down (S3) if = 2.5 METs, Verbalizes symptoms of exercise intolerance by Session 3 (S3) and Demonstrate safe equipment use (S3) & follows exercise prescrition (6) Intervention & Plan Plan/Intervention: Instruct warm-up & cool-down if exercising at > 2 METs, In struct on symptoms of exercise intolerance & actions to take, Instruct & monitor on saf and Assess intial functional capacity & safety risk 30-day Reassessments 30 day Reassessments:: Met Nutrition - 30-Day Assessment Visit Date of Eval: 12/15/22 Session #:: 11 Cholesterol/Lipids (Other Core Measures) Lipid Medication: Atorvastatin Determine presence & major risk factors that modify LDL goal: Hypertension or hypertensive medication, Family history of premature CHD in Male < 55 years: female <65 yearsFa and Age men > 45 years; women >/= 55 years Outcomes/Goals: Pt IDs own risk factors & lifestyle modifications by Session 10, Verbalizes symptoms of angina & response by session 3. and Pt independently manages Intervention/Plan: Instruct on personal lipid levels & lipid goals/NCEP guidelines and Instruct on cholesterol Referral to dietitian:: Yes 30-day Reassessments:: Progressing Diabetes (Other Core Measures) Diabetes Type: Not Applicable Insulin dependent injection/pump?: No Non-Insulin Dependent?: No Do you monitor your blood sugar at home?: No Referral to Diabetic Clinic:: No Weight Mgt (Other Care) Not Applicable: No Height: 6 ft Weight:: 254 lb BMI: 34.4 Diagnosis Overweight/Obesity BMI> 30% ICD-10 E66: Yes Diagnosis High BMI/Morbid Obesity BMI> 35% ICD-10 Z68: No Outcomes/Goals: Pt sets, maintains & shows weight loss goal & trend during rehab Intervention/Plan: Instruct on ideal BMI & set weight loss goal w/patient, Assist pt to ID & incorporate diet changes for weight loss by S9, Refer to [facility] Weight Loss program as appropriate and Encourage goal of using 250- 300dcal per session for weight loss 30 day Reassessments:: Not Met Healthy Eating Habits Will attend diet classes:: Yes Outcomes/Goals:: Consume diet rich in vegs,fruits,whole grain/high fiber,fish,lean meat and Limit sat/trans fats,cholesterol & added salts & sugars Intervention/Plan:: Assess current eating habits 30-day Reassessments:: Progressing Education Gave educational materials for:: Healthy eating Nutrition - 60-Day Assessment Weight Mgt (Other Care) Height: 6 ft Weight:: 254 lb BMI: 34.4 Core - 30-Day Assessment Visit Date of Eval: 12/15/22 Session #:: 11 Medication Compliance Preventative Medication(s):: Aspirin, Ticagrelor/P2Y12 inhibitor, Statin/lipid and Beta lou H/O mental health issues: depression, anxiety, or addiction?: No Doesn?t believe in the benefits of treatment?: No Believes medications are unnecessary or harmful?: No Has a concern about medication side effects?: No Expresses concern over the cost of medications?: No Outcomes/Goals: Verbalizes medications,desired effect & common side effects @ DC, Pt self-reports following medication regimen and Keeps card in wallet w/me dications listed by DC Interventions/plans: Instruct on medication effects & side effects, Review medication list w/patient every two weeks and Instruct importance of taking meds as ordered & assist problem solving 30-day Reassessments:: Progressing Tobacco Use Tobacco Use: Vapor How many cigarettes do you smoke per day?: 20 Years Smokin Do you use smokeless tobacco?: Yes Outcomes/Goals: Smoking cessation achieved or maintained by discharge and Identify aids/strategies for achieving smoking cessation by session 6 Interventions/plan: Instruct on effects of smoking & provide smoking cessation resource, Assist pt to set quit date & provide encouragement, Assist pt to develop strategies to achieve/maintain quit date and Assist pt w/nicotine replacement & medication for cessation success 30-day Reassessments:: Progressing Hypertension Hypertension Diagnosis:: Hypertension ICD-10 I10 Resting Blood Pressure:: 120/80 [place] [employer] Hypertension Guidelines Peak Exercise Blood Pressure:: 160/90 Outcomes/Goals: Able to verbalize/achieve optimal blood pressure <130/80 and Incorporates diet changes & exercise for blood pressure control by DC Interventions/plan: Instruct on optimal blood pressure, hypertension & medications and Instruct on effects of sodium, alcohol, stress, exercise &hypertension 30 day Reassessments:: Met Tobacco Cessation Referral Smoking Cessation Referral:: Yes Individual Education/Counseling:: Yes (Risk of Vaping and smoking dangers) Education Schedule Given:: Yes Psychosocial - 30-Day Assess VIsit Date of Eval: 12/15/22 Session #:: 11 Not Applicable: Yes History of previous Mental disease:: No Target Goals Target Goals Psychosocial Test Tool Used:: PHQ-9 Questionnaire phq-9 Severity Referral to Behavioral Health PS - Interventions: Yes: Attend Stress Management Classes and No: Referral to Behavioral Health if PHQ-9 score >9:, No: Referral to [facility] and No: Referral to Physician if PHQ-9 if score is 5-9: Outcomes/Goals: See list Psychosocial Outcomes/Goals:: ID's personal stressors & 2 strategies to manage stress by discharge Intervention/Plan: See List Interventions/Plan:: Assess stressors,coping strategies & signs of derpression on admission, Instruct/assist pt to develop coping & personal stress Mgt strategies, Instruct patient to recognize signs & symptoms of depression and Instruct patient to recog 30-day Reassessments: 30 day Reassessments:: Progressing Psychosocial - 60-Day Assess Target Goals Target Goals Referral to Behavioral Health PS - Interventions: Yes: Attend Stress Management Classes and No: Referral to Behavioral Health if PHQ-9 score >9:, No: Referral to [facility] and No: Referral to Physician if PHQ-9 if score is 5-9: Outcomes/Goals: See list Psychosocial Outcomes/Goals:: ID's personal stressors & 2 strategies to manage stress by discharge Psychosocial - 90-Day Assess Target Goals Target Goals Referral to Behavioral Health PS - Interventions: Yes: Attend Stress Management Classes and No: Referral to Behavioral Health if PHQ-9 score >9:, No: Referral to [facility] and No: Referral to Physician if PHQ-9 if score is 5-9: Psychosocial - Final Assessmen Target Goals Target Goals Referral to Behavioral Health PS - Interventions: Yes: Attend Stress Management Classes and No: Referral to Behavioral Health if PHQ-9 score >9:, No: Referral to [facility] and No: Referral to Physician if PHQ-9 if score is 5-9: Nutrition - 90-Day Assessment Weight Mgt (Other Care) Height: 6 ft Weight:: 254 lb BMI: 34.4 Nutrition - Final Assessment Weight Mgt (Other Care) Height: 6 ft Weight:: 254 lb BMI: 34.4
[2022-12-15 08:14] VITALS: BP 120/80; BMI 34.4
== END 2023-01-08 23:59 ==
LOC: CR 08:00
PROVIDERS: PCP Nurse Practitioner; Referring Provider Internal Medicine Cardiovascular Disease; Visit Provider Internal Medicine Cardiovascular Disease
DX: I25.10 Atherosclerotic heart disease of native coronary artery without angina pectoris; Z95.5 Presence of coronary angioplasty implant and graft
CPT/HCPCS: 93798

== ENCOUNTER 2023-02-06 08:00 | Outpatient (RCR) | payer BC, SELFPAY ==
[2022-12-15 08:14] VITALS: BMI 34.4
[2023-01-09 00:12] VITALS: BP 120/80
--- NOTE | 2023-01-14 08:04 | PCM.CR.ITP ---
Nutrition - Initial Assessment Weight Mgt (Other Care) Height: 6 ft Weight:: 258 lb BMI: 34.9 Psychosocial - Initial Assess Target Goals Target Goals Patient Health Questionnaire PHQ-9 Screening 60-Day Re-eval Assessment: 1. Little interest or pleasure in doing things: Not at all 2. Feeling down, depressed, or hopeless: Not at all 3. Trouble falling or staying asleep, or sleeping too much: Not at all 4. Feeling tired or having little energy: Several days 5. Poor appetite or overeating: Not at all 6. Feeling bad about yourself -- or that you are a failure or have let yourself or your family down: Not at all 7. Trouble concentrating on things, such as reading the newspaper or watching television: Not at all 8. Moving or speaking so slowly that other people could have noticed. Or the opposite - being so fidgety or restless that you have been moving around a lot more than usual: Not at all 9. Thoughts that you would be better off , or of hurting yourself in some way: Not at all How difficult have these problems made it for you to do your work, take care of things at home, or get along with other people?: Not difficult at all Total Score: 1 Self-Efficacy 6-Item Scale 60-Day Re-eval Assessment: We would like to know how confident you are in doing certain activities. Please select your confidence level for: Fatigue Select Number: 7 Physical Discomfort or Pain Select Number: 7 Emotional Distress Select Number: 10 Other Symptoms or Health Problems Select Number: 8 Different Tasks and Activities Select Number: 7 Medication Select Number: 10 Total Score:: 8 Nutrition Survey Nutrition Survey Instructions Scoring Instructions Exercise - 60-day Assessment Visit Date of Eval: 01/14/23 Session #:: 21 Physician Prescribed Exercise Modalities: Treadmill, Rower and NuStep Frequency: 3x/week for 12 weeks [36 sessions] Intensity: 60-80% of age predicted maximum heart rate reserve Duration: 30 - 45 minutes Current METSs:: 6.5 Target Heart Rate:: 120-136 Current RPE:: 12-13 Maximum Excercise HR:: 122 Resting Blood Pressure: 118/62 Maximum Exercise Blood Pressure: 146/84 EKG Type: NSR to ST with occas PVC, occas PAC Outcomes & Goals Goals:: Verbalizes understanding of THR, RPE & goal METS by session 6, Documents in home exercise log/reports 30 min aerobic 5 day/wk by DC, Demonstrates accurate pulse taking by DC and Other additional outcome/goals: see below Intervention & Plan Exercise Program Goals: Instruct on personal THR & RPE, Instruct on MET level & personal MET goal, Show patient to take own pulse /validate performance until accurate, Instruct on home exercise and Other additional plan/int 30-day Reassessments 30 day Reassessments:: Progressing Reassessment Notes & Comments:: METs explained Physical Activity Home Exercise Physical Activity - Home Exercise: Safe Exercise, Warm-up, Self-monitoring, Cool-Down, Home Exercise > 30 min Daily and Sitting Time <3 hours/daily Outcomes & Goals Outcomes/Goals: Demonstrates correct Warm-up/exercise Cool-Down (S3) if = 2.5 METs, Verbalizes symptoms of exercise intolerance by Session 3 (S3), Demonstrate safe equipment use (S3) & follows exercise prescrition (6) and Other: See below Intervention & Plan Plan/Intervention: Instruct warm-up & cool-down if exercising at > 2 METs, Instruct on symptoms of exercise intolerance & actions to take, Instruct & monitor on saf, Assess intial functional capacity & safety risk and Other See below 30-day Reassessments 30 day Reassessments:: Progressing Reassessment Notes & Comments:: cool down encouraged Nutrition - 30-Day Assessment Weight Mgt (Other Care) Height: 6 ft Weight:: 258 lb BMI: 34.9 Nutrition - 60-Day Assessment Visit Date of Eval: 01/14/23 Session #:: 21 Cholesterol/Lipids (Other Core Measures) Determine presence & major risk factors that modify LDL goal: Hypertension or hypertensive medication, Low HDL cholesterol <40 mg/dL*, Family history of premature CHD in Male < 55 years: female <65 yearsFa and Age men > 45 years; women >/= 55 years Outcomes/Goals: Pt IDs own risk factors & lifestyle modifications by Session 10, Verbalizes symptoms of angina & response by session 3., Pt independently manages and Other Additional Outcomes/Goals: Intervention/Plan: Advocate for lipid panel cholesterol medication if applicable, Instruct on personal lipid levels & lipid goals/NCEP guidelines, Instruct on cholesterol and Other additional plan/int 30-day Reassessments:: Progressing Reassessment Notes & Comments:: pt to attend nutrition class Diabetes (Other Core Measures) Diabetes Type: Not Applicable Weight Mgt (Other Care) Height: 6 ft Weight:: 258 lb BMI: 34.9 Diagnosis Overweight/Obesity BMI> 30% ICD-10 E66: Yes Diagnosis High BMI/Morbid Obesity BMI> 35% ICD-10 Z68: No Outcomes/Goals: Pt sets, maintains & shows weight loss goal & trend during rehab and Other additional outcomes/goals Intervention/Plan: Instruct on ideal BMI & set weight loss goal w/patient, Assist pt to ID & incorporate diet changes for weight loss by S9, Refer to Structured Weight Loss program as appropriate, Encourage goal of using 250-300dcal per session for weight loss and Other additional plan/interventions 30 day Reassessments:: Progressing Reassessment Notes & Comments:: pt to attend nutrition class Healthy Eating Habits Will attend diet classes:: Yes Outcomes/Goals:: Consume diet rich in vegs,fruits,whole grain/high fiber,fish,lean meat, Limit sat/trans fats,cholesterol & added salts & sugars and Other additional outcome/goals: Intervention/Plan:: Assess current eating habits and Other Additional plan/interventions 30-day Reassessments:: Progressing Reassessment Notes & Comments:: pt to attend nutrition class Education Gave educational materials for:: Signs & symptoms of hypoglycemia, Signs & symptoms of hyperglycemia, Relate diabetes to coronary artery disease and Healthy eating Core - 60-Day Assessment Visit Date of Eval: 01/14/23 Session #:: 21 Medication Compliance Preventative Medication(s):: Aspirin, Ticagrelor/P2Y12 inhibitor, Statin/lipid and Beta lou H/O mental health issues: depression, anxiety, or addiction?: No Doesn?t believe in the benefits of treatment?: No Believes medications are unnecessary or harmful?: No Has a concern about medication side effects?: No Expresses concern over the cost of medications?: No Outcomes/Goals: Verbalizes medications,desired effect & common side effects @ DC, Pt self-reports following medication regimen, Keeps card in wallet w/medications listed by DC and Other additional outcome/goals: Interventions/plans: Instruct on medication effects & side effects, Review medication list w/patient every two weeks, Instruct importance of taking meds as ordered & assist problem solving and Other additional 30-day Reassessments:: Progressing Tobacco Use Tobacco Use: Vapor Outcomes/Goals: Smoking cessation achieved or maintained by discharge, Identify aids/strategies for achieving smoking cessation by session 6 and Other additional outcome/goals Interventions/plan: Instruct on effects of smoking & provide smoking cessation resource, Assist pt to set quit date & provide encouragement, Assist pt to develop strategies to achieve/maintain quit date, Assist pt w/nicotine replacement & medication for cessation success and Other additional plan/interventions 30-day Reassessments:: Progressing Hypertension Hypertension Diagnosis:: Hypertension ICD-10 I10 Resting Blood Pressure:: 118/62 [place] [employer] Hypertension Guidelines Peak Exercise Blood Pressure:: 146/84 Outcomes/Goals: Able to verbalize/achieve optimal blood pressure <130/80, Incorporates diet changes & exercise for blood pressure control by DC and Other additional outcomes/goals Interventions/plan: Instruct on optimal blood pressure, hypertension & medications, Instruct on effects of sodium, alcohol, stress, exercise &hypertension and Other additional plan/interventions 30 day Reassessments:: Progressing Reassessment Notes & Comments:: pt encouraged to take his meds Tobacco Cessation Referral Smoking Cessation Referral:: No Individual Education/Counseling:: No Education Schedule Given:: Yes Psychosocial - 30-Day Assess Target Goals Target Goals Outcomes/Goals: See list Psychosocial Outcomes/Goals:: ID's personal stressors & 2 strategies to manage stress by discharge and Other Additional outcome/goals: Psychosocial - 60-Day Assess VIsit History of previous Mental disease:: No Target Goals Target Goals Outcomes/Goals: See list Psychosocial Outcomes/Goals:: ID's personal stressors & 2 strategies to manage stress by discharge and Other Additional outcome/goals: Intervention/Plan: See List Interventions/Plan:: Assess stressors,coping strategies & signs of derpression on admission, Instruct/assist pt to develop coping & personal stress Mgt strategies, Refer to Behavioral Health if appropriate, Refer to Physician if appropriate, Instruct patient to recognize signs & symptoms of depression, Instruct patient to recog and Other additional plan/intervention Psychosocial - 90-Day Assess Target Goals Target Goals Psychosocial - Final Assessmen Target Goals Target Goals Nutrition - 90-Day Assessment Weight Mgt (Other Care) Height: 6 ft Weight:: 258 lb BMI: 34.9 Nutrition - Final Assessment Weight Mgt (Other Care) Height: 6 ft Weight:: 258 lb BMI: 34.9
[2023-01-14 08:16] VITALS: BP 118/62; BMI 34.9
== END 2023-02-07 23:59 ==
LOC: CR 08:00
PROVIDERS: PCP Nurse Practitioner; Referring Provider Internal Medicine Cardiovascular Disease; Visit Provider Internal Medicine Cardiovascular Disease
DX: I25.10 Atherosclerotic heart disease of native coronary artery without angina pectoris (principal); Z95.5 Presence of coronary angioplasty implant and graft
CPT/HCPCS: 93798

== ENCOUNTER 2023-02-20 08:00 | Outpatient (RCR) | payer BC, SELFPAY ==
[2023-01-14 08:16] VITALS: BMI 34.9
[2023-02-08 00:13] VITALS: BP 118/62; BP 120/80
--- NOTE | 2023-02-16 12:53 | PCM.CR.ITP ---
Nutrition - Initial Assessment Weight Mgt (Other Care) Height: 6 ft Weight:: 258 lb 8 oz BMI: 35.0 Psychosocial - Initial Assess Target Goals Target Goals Patient Health Questionnaire PHQ-9 Screening 90-Day Re-eval Assessment: 1. Little interest or pleasure in doing things: Not at all 2. Feeling down, depressed, or hopeless: Not at all 3. Trouble falling or staying asleep, or sleeping too much: Not at all 4. Feeling tired or having little energy: Several days 5. Poor appetite or overeating: Not at all 6. Feeling bad about yourself -- or that you are a failure or have let yourself or your family down: Not at all 7. Trouble concentrating on things, such as reading the newspaper or watching television: Not at all 8. Moving or speaking so slowly that other people could have noticed. Or the opposite - being so fidgety or restless that you have been moving around a lot more than usual: Not at all 9. Thoughts that you would be better off , or of hurting yourself in some way: Not at all How difficult have these problems made it for you to do your work, take care of things at home, or get along with other people?: Not difficult at all Total Score: 1 Self-Efficacy 6-Item Scale 90-Day Re-eval Assessment: We would like to know how confident you are in doing certain activities. Please select your confidence level for: Fatigue Select Number: 7 Physical Discomfort or Pain Select Number: 7 Emotional Distress Select Number: 10 Other Symptoms or Health Problems Select Number: 8 Different Tasks and Activities Select Number: 7 Medication Select Number: 10 Total Score:: 8 Nutrition Survey Nutrition Survey Instructions Scoring Instructions Exercise - 90-day Assessment Visit Date of Eval: 02/16/23 Session #:: 34 Physician Prescribed Exercise Modalities: Treadmill, Rower and NuStep Frequency: 3x/week for 12 weeks [36 sessions] Intensity: 60-80% of age predicted maximum heart rate reserve Duration: 30 - 45 minutes Current METSs:: 8 Target Heart Rate:: 120-136 Current RPE:: 12-14 Maximum Excercise HR:: 115 Resting Blood Pressure: 116/64 Maximum Exercise Blood Pressure: 162/70 EKG Type: NSR to ST with occas PVC, occas PAC, rare vent trigeminy, quadrigeminy, rar Outcomes & Goals Goals:: Verbalizes understanding of THR, RPE & goal METS by session 6, Documents in home exercise log/reports 30 min aerobic 5 day/wk by DC, Demonstrates accurate pulse taking by DC and Other additional outcome/goals: see below Intervention & Plan Exercise Program Goals: Instruct on personal THR & RPE, Instruct on MET level & personal MET goal, Show patient to take own pulse /validate performance until accurate, Instruct on home exercise and Other additional plan/int 30-day Reassessments 30 day Reassessments:: Met Physical Activity Home Exercise Physical Activity - Home Exercise: Safe Exercise, Warm-up, Self-monitoring, Cool-Down, Home Exercise > 30 min Daily and Sitting Time <3 hours/daily Outcomes & Goals Outcomes/Goals: Demonstrates correct Warm-up/exercise Cool-Down (S3) if = 2.5 METs, Verbalizes symptoms of exercise intolerance by Session 3 (S3), Demonstrate safe equipment use (S3) & follows exercise prescrition (6) and Other: See below Intervention & Plan Plan/Intervention: Instruct warm-up & cool-down if exercising at > 2 METs, Instruct on symptoms of exercise intolerance & actions to take, Instruct & monitor on saf, Assess intial functional capacity & safety risk and Other See below 30-day Reassessments 30 day Reassessments:: Met Nutrition - 30-Day Assessment Weight Mgt (Other Care) Height: 6 ft Weight:: 258 lb 8 oz BMI: 35.0 Nutrition - 60-Day Assessment Weight Mgt (Other Care) Height: 6 ft Weight:: 258 lb 8 oz BMI: 35.0 Core - 90 Day Assessment Visit Date of Eval: 02/16/23 Session #:: 34 Medication Compliance Preventative Medication(s):: Aspirin, Ticagrelor/P2Y12 inhibitor, Statin/lipid and Beta lou H/O mental health issues: depression, anxiety, or addiction?: No Doesn?t believe in the benefits of treatment?: No Believes medications are unnecessary or harmful?: No Has a concern about medication side effects?: No Expresses concern over the cost of medications?: No Outcomes/Goals: Verbalizes medications,desired effect & common side effects @ DC, Pt self-reports following medication regimen, Keeps card in wallet w/medications listed by DC and Other additional outcome/goals: Interventions/plans: Instruct on medication effects & side effects, Review medication list w/patient every two weeks, Instruct importance of taking meds as ordered & assist problem solving and Other additional 30-day Reassessments:: Met Tobacco Use Tobacco Use: Vapor Outcomes/Goals: Smoking cessation achieved or maintained by discharge, Identify aids/strategies for achieving smoking cessation by session 6 and Other additional outcome/goals Interventions/plan: Instruct on effects of smoking & provide smoking cessation resource, Assist pt to set quit date & provide encouragement, Assist pt to develop strategies to achieve/maintain quit date, Assist pt w/nicotine replacement & medication for cessation success and Other additional plan/interventions 30-day Reassessments:: Progressing Hypertension Hypertension Diagnosis:: Hypertension ICD-10 I10 Resting Blood Pressure:: 116/64 [place] [employer] Hypertension Guidelines Peak Exercise Blood Pressure:: 162/70 Outcomes/Goals: Able to verbalize/achieve optimal blood pressure <130/80, Incorporates diet changes & exercise for blood pressure control by DC and Other additional outcomes/goals Interventions/plan: Instruct on optimal blood pressure, hypertension & medications, Instruct on effects of sodium, alcohol, stress, exercise &hypertension and Other additional plan/interventions 30 day Reassessments:: Met Tobacco Cessation Referral Smoking Cessation Referral:: No Individual Education/Counseling:: Yes Education Schedule Given:: No Psychosocial - 30-Day Assess Target Goals Target Goals Psychosocial - 60-Day Assess Target Goals Target Goals Psychosocial - 90-Day Assess VIsit Date of Eval: 02/16/23 Session #:: 34 History of previous Mental disease:: No Target Goals Target Goals Psychosocial Test Tool Used:: [employer] QOL Cardiac and PHQ-9 Questionnaire phq-9 Severity Outcomes/Goals: See list Psychosocial Outcomes/Goals:: ID's personal stressors & 2 strategies to manage stress by discharge and Other Additional outcome/goals: Intervention/Plan: See List Interventions/Plan:: Assess stressors,coping strategies & signs of derpression on admission, Instruct/assist pt to develop coping & personal stress Mgt strategies, Refer to Behavioral Health if appropriate, Refer to Physician if appropriate, Instruct patient to recognize signs & symptoms of depression, Instruct patient to recog and Other additional plan/intervention 30-day Reassessments: 30 day Reassessments:: Met Psychosocial - Final Assessmen Target Goals Target Goals Nutrition - 90-Day Assessment Visit Date of Eval: 02/16/23 Session #:: 34 Cholesterol/Lipids (Other Core Measures) Determine presence & major risk factors that modify LDL goal: Cigarette smoking, Hypertension or hypertensive medication, Low HDL cholesterol <40 mg/dL*, Family history of premature CHD in Male < 55 years: female <65 yearsFa and Age men > 45 years; women >/= 55 years Outcomes/Goals: Pt IDs own risk factors & lifestyle modifications by Session 10, Verbalizes symptoms of angina & response by session 3., Pt independently manages and Other Additional Outcomes/Goals: Intervention/Plan: Advocate for lipid panel cholesterol medication if applicable, Instruct on personal lipid levels & lipid goals/NCEP guidelines, Instruct on cholesterol and Other additional plan/int 30-day Reassessments:: Met Diabetes (Other Core Measures) Diabetes Type: Not Applicable Weight Mgt (Other Care) Height: 6 ft Weight:: 258 lb 8 oz BMI: 35.0 Diagnosis Overweight/Obesity BMI> 30% ICD-10 E66: Yes Diagnosis High BMI/Morbid Obesity BMI> 35% ICD-10 Z68: No Outcomes/Goals: Pt sets, maintains & shows weight loss goal & trend during rehab and Other additional outcomes/goals Intervention/Plan: Instruct on ideal BMI & set weight loss goal w/patient, Assist pt to ID & incorporate diet changes for weight loss by S9, Refer to Structured Weight Loss program as appropriate, Encourage goal of using 250-300dcal per session for weight loss and Other additional plan/interventions 30 day Reassessments:: Met Healthy Eating Habits Will attend diet classes:: Yes Outcomes/Goals:: Consume diet rich in vegs,fruits,whole grain/high fiber,fish,lean meat, Limit sat/trans fats,cholesterol & added salts & sugars and Other additional outcome/goals: Intervention/Plan:: Assess current eating habits and Other Additional plan/interventions 30-day Reassessments:: Met Education Gave educational materials for:: Signs & symptoms of hypoglycemia, Signs & symptoms of hyperglycemia, Relate diabetes to coronary artery disease and Healthy eating Nutrition - Final Assessment Weight Mgt (Other Care) Height: 6 ft Weight:: 258 lb 8 oz BMI: 35.0
[2023-02-16 13:02] VITALS: BP 116/64; BMI 35.0
== END 2023-03-10 23:59 ==
LOC: CR 08:00
PROVIDERS: PCP Nurse Practitioner; Referring Provider Internal Medicine Cardiovascular Disease; Visit Provider Internal Medicine Cardiovascular Disease
DX: I25.10 Atherosclerotic heart disease of native coronary artery without angina pectoris (principal); Z95.5 Presence of coronary angioplasty implant and graft
CPT/HCPCS: 93798

== ENCOUNTER 2023-12-05 19:19 | Emergency (ER) | payer BC, SELFPAY ==
[2023-02-16 13:02] VITALS: BMI 35.0
[2023-12-05] VITALS (8 sets, daily range): BP systolic 110–137; BP diastolic 76–99; PULSE 54–76; RESP 12–19; TEMP 36.7; O2SAT 95–99; BMI 32.6
--- NOTE | 2023-12-05 19:32 | EKG12_ITS ---
Test Reason : TACHYCARDIA Blood Pressure : / mmHG Vent. Rate : 065 BPM Atrial Rate : 065 BPM P-R Int : 182 ms QRS Dur : 084 ms QT Int : 402 ms P-R-T Axes : 069 013 027 degrees QTc Int : 418 ms Normal sinus rhythm Normal ECG Confirmed by RICHARD BATES, KUMAR ([id number]), telegraph editor UELA PARKINSON ([id number]) on 12/08/2023 2:19:13 PM Referred By: Confirmed By:HEMA RAMOS MD
--- NOTE | 2023-12-05 19:47 | EDS_ITS ---
HPI History of Present Illness Chief Complaint: Chest Other Narrative Narrative: 63-year-old male with history of RI, cardiac stent, hypertension presenting with burning chest pain in the lower aspect of the central chest. He states that when he had his RI he had only very mild symptoms and states that it felt like an air bubble or burp. Patient concerned that this could be cardiac. Denies cough, fever, chills. He is not short of breath. He states initially when it started he noted his heart rate was about 120 but it is slow down. He does state that he is very anxious since he had his heart attack. [facility] Medical History Presence of stent in coronary artery (~10/07/22) Coronary artery disease Non-ST elevated myocardial infarction (non-STEMI) Hypercholesterolemia Arthritis Tobacco user Diverticulosis of sigmoid colon Home Medications ?Medication ?Instructions ?Recorded ?Last Taken ?Type aspirin 81 mg tablet,delayed 81 mg PO BREAKFAST 30 days #30 tabs 10/08/22 10/28/22 Rx release ticagrelor 90 mg tablet (Brilinta) 90 mg PO BID #60 tabs 12/12/22 Unknown Rx nitroglycerin 0.4 mg sublingual 0.4 mg sublingual Q5M PRN CHEST 01/02/23 Unknown Rx tablet PAIN #30 tabs atorvastatin 80 mg tablet 40 mg (1/2 x 80 mg) PO QHS #90 tabs 02/09/23 Unknown Rx amlodipine 2.5 mg tablet 2.5 mg PO DAILY #90 tabs 10/06/23 Unknown Rx Allergy/AdvReac Type Severity Reaction Status Date / Time procaine (From Novocain) Allergy Anaphylaxis Verified 12/05/23 19:24 Family History Grandfather Myocardial infarction Father Myocardial infarction Surgical History History of prostatectomy History of tonsillectomy Hx of right coronary artery stent placement (~10/28/22) Presence of coronary angioplasty implant and graft (~10/07/22) Social History household members: spouse housing: house current occupational status: retired Smoking Status: Current every day smoker tobacco type: e-cigarettes how long ago did patient quit smoking: Used to smoke 2 packs of regular cigarettes every day up until about 10 yea alcohol intake: never substance use type: does not use caffeine: Yes Type: coffee Number of servings: 2 ROS ROS ED Constitutional Constitutional ED: Denies chills, fever(s) or sweats Eyes Eyes: Denies blurry vision or change in vision ENT ENT ED: Denies ear pain or sore throat Cardiovascular Cardiovascular: Reports as per HPI and chest pain; Denies palpitations or racing heartbeat Respiratory/Chest Respiratory/Chest: Denies cough, dyspnea or sputum Gastrointestinal Gastrointestinal: Denies abdominal pain, constipation, diarrhea, nausea or vomiting Genitourinary Genitourinary ED: Denies dysuria, hematuria or urinary frequency Musculoskeletal Musculoskeletal: Denies arthralgias, myalgias or neck pain Integumentary Denies abscess, Abrasions or rash Neurologic Neurologic: Denies headache(s), paresthesias or weakness Psychiatric Psychiatric: Denies anxiety, depression, suicidal ideation or suicidal thoughts Endocrine Endocrinology: Denies polydipsia or polyuria EXAM Physical Exam Const Vital Signs: 12/05/23 19:20 12/05/23 19:38 12/05/23 19:40 Temperature 98.0 F Temperature Source Temporal Pulse Rate 76 Respiratory Rate 15 Respiratory Effort Normal Blood Pressure 137/99 H Blood Pressure Mean 111 Pulse Ox 98 Oxygen Delivery Method Room Air Room Air 12/05/23 20:51 12/05/23 21:00 12/05/23 21:15 Temperature 98.1 F Temperature Source Oral Pulse Rate 56 L 58 L 56 L Respiratory Rate 14 18 12 Respiratory Effort Blood Pressure 116/94 H 110/77 119/76 Blood Pressure Mean 101 88 89 Pulse Ox 99 99 Oxygen Delivery Method Room Air Room Air 12/05/23 21:30 12/05/23 21:45 12/05/23 22:00 Temperature Temperature Source Pulse Rate 66 58 L 55 L Respiratory Rate 19 H 14 18 Respiratory Effort Blood Pressure 122/78 H 115/76 122/85 H Blood Pressure Mean 92 90 97 Pulse Ox 95 Oxygen Delivery Method 12/05/23 22:00 Temperature Temperature Source Pulse Rate 60 Respiratory Rate 15 Respiratory Effort Blood Pressure 122/85 H Blood Pressure Mean 97 Pulse Ox Oxygen Delivery Method Positive well nourished General Appearance ED: NAD HEENT Reports moist mucous membranes Eyes PERRL and EOMs intact bilaterally Neck no lymphadenopathy Resp normal respiratory effort Auscultation: Negative for rales, rhonchi or wheezes Cardio regular rate and regular rhythm GI normal to inspection, nondistended, normoactive bowel sounds Neuro oriented x3 and CN's II-XII intact bilaterally Sensorium / Orientation: awake and alert Motor Exam: strength 5/5 throughout Psych mental status grossly normal Skin no rashes or lesions noted MDM MDM MDM Narrative Medical decision making narrative: Patient presenting with burning sensation in his chest. Differential includes but is not limited to ACS, PE, pneumonia, pneumothorax, muscle strain, costochondritis. Patient PERC negative. CBC will be obtained to assess white blood cell count, hemoglobin, platelets. BMP to assess renal function, electrolytes, glucose. High-sensitivity troponin and EKG to assess for ischemia/dysrhythmia. Chest x-ray to rule out pneumonia. Patient declines analgesia at this time he states he is having symptoms. Reevaluation at 9:13 PM. Went over his normal lab work. CBC shows normal white blood cell count 6.7. Hemoglobin 15.2. Platelets normal at 287. Renal function electrolytes within normal limits. High-sensitivity troponin is 6. EKG interpreted by myself shows a sinus rhythm at 65 bpm without sign of ischemic change or dysrhythmia. Chest x-ray interpreted by myself shows no acute cardiopulmonary process. Radiologist interprets this and agrees. Delta troponin is pending. Patient was signed out to incoming ED physician for monitoring until delta troponin can be obtained. Impression: 1. Chest pain Lab Data Attestation: I reviewed the patient's lab results. Labs: Laboratory Results - last 24 hr 12/05/23 19:42 WBC 6.7 RBC 5.27 Hgb 15.2 Hct 46.1 MCV 87.5 MCH 28.8 MCHC 33.0 RDW Std Deviation 45.9 H RDW Coeff of Josr 14.3 Plt Count 257 MPV 9.2 Immature Gran % (Auto) 0.100 Neut % (Auto) 55.0 Lymph % (Auto) 29.1 [place] % (Auto) 12.4 H Eos % (Auto) 2.7 Baso % (Auto) 0.7 Absolute Neuts (auto) 3.7 Absolute Lymphs (auto) 1.95 Nucleated RBC % 0 Sodium 140 Potassium 3.7 Chloride 111 H Carbon Dioxide 25.0 Anion Gap 4 L BUN 22 H Creatinine 1.00 Estim Creat Clear Calc 99.06 Est GFR (MDRD) Af Amer 98 Est GFR (MDRD) Non-Af 81 BUN/Creatinine Ratio 22.0 H Glucose 91 Calcium 8.9 Troponin I High Sens 6 Radiography Diagnostic Testing: Clinical Impression(s) from Imaging Studies Chest X-Ray 12/05/23 19:55 IMPRESSION: No radiographic evidence of acute cardiopulmonary disease. Electronically Signed: Jj Cooper MD at 20:50 EDT , Discharge Plan Triage Chief Complaint: Chest Other ED Provider: Eyal Mayo Dx/Rx/DC Orders Prescriptions: No Action aspirin 81 mg Tablet,Delayed Release (Dr/Ec) 81 mg PO BREAKFAST 30 Days Qty: 30 4RF Brilinta 90 mg tablet 90 mg PO BID Qty: 60 11RF nitroglycerin 0.4 mg tablet, sublingual 0.4 mg sublingual Q5M PRN (Reason: CHEST PAIN) Qty: 30 3RF atorvastatin 80 mg tablet 40 mg PO QHS Qty: 90 3RF amlodipine 2.5 mg tablet 2.5 mg PO DAILY Qty: 90 3RF Primary Care Provider: Rylee Quinones NP Referrals: Rylee Quinones STATION COOK, STATION COOK-C [Primary Care Provider] - Print Language: Croatian
[2023-12-05 19:49] LABS: Absolute Lymphocyte Count 1.95 X10^3/uL (0.83-4.51); Absolute Neutrophil Count 3.7 X10^3/uL (2.0-7.7); Basophil# 0.05 X10^3/uL; Basophil% 0.7 % (0-1); Eosinophil# 0.18 X10^3/uL; Eosinophils% 2.7 % (0-5); Hematocrit 46.1 % (40-54); Hemoglobin 15.2 g/dL (13.0-16.5); Lymphocyte # 1.95 X10^3/ul (0.83-4.51); Lymphocyte % 29.1 % (19-41); Mean Corpuscular Hgb 28.8 pg (27.0-32.0); Mean Corpuscular Volume 87.5 fL (80-94); Mean Platelet Vol. 9.2 fl (6.2-12.0); Monocyte# 0.83 X10^3/uL; Monocyte% 12.4 % (0-10); NRBC Flagged by Analyzer 0 % (0-5); Neutrophil # 3.69 X10^3/uL (2.7-7.7); Platelet Count 257 K/mm3 (150-450); RBC Distribution Width CV 14.3 % (11.6-14.6); RBC Distribution Width SD 45.9 fl (35.1-43.9); Red Blood Count 5.27 M/mm3 (4.6-6.2); White Blood Count 6.7 K/mm3 (4.4-11.0)
--- NOTE | 2023-12-05 19:55 | RAD_ITS ---
INDICATION: Chest pain EXAMINATION/TECHNIQUE: X-RAY - portable upright AP chest x-ray COMPARISON: 10/04/2022 FINDINGS: LINES/DEVICES: None. LUNGS: No consolidation, edema or effusion. No pneumothorax. MEDIASTINUM AND CARDIOVASCULAR STRUCTURES: Cardiac silhouette not enlarged. Central airways and mediastinal contour are unremarkable. BONES AND SOFT TISSUES: No acute changes. RAD/Chest 1 View (Portable) IMPRESSION: No radiographic evidence of acute cardiopulmonary disease. Electronically Signed: Jj Cooper MD at 20:50 EDT ,
[2023-12-05] MEDS: Aspirin 81 MG TAB.CHEW 324 MG PO (19:58)
[2023-12-05 20:15] LABS: Anion Gap 4 (5-15); BUN 22 mg/dL (7-18); Calcium,Total 8.9 mg/dL (8.5-10.1); Chloride 111 mmol/L (98-107); EST Glomerular Filtration Rate 81 mL/min (>60); Est Glom Filt Rate - Afr Amer 98 mL/min (>60); Estimated Creatinine Clearance 99.06 ml/min; Glucose 91 mg/dL (74-106); Potassium 3.7 mmol/L (3.5-5.1); Sodium Level 140 mmol/L (136-145); Troponin-I HS (w/2H Reflex) 6 pg/mL (3.0-78.0)
[2023-12-05 21:46] LABS: Reflex Troponin-HS? (from REC) Y
[2023-12-05 22:35] LABS: Troponin-I HS 6 pg/mL (3.0-78.0)
== END 2023-12-05 22:53 | disposition home or self-care (01) ==
PROVIDERS: Emergency Provider Student in an Organized Health Care Education/Training Program; PCP Nurse Practitioner; Visit Provider Student in an Organized Health Care Education/Training Program
DX: R07.89 Other chest pain (principal); I25.10 Atherosclerotic heart disease of native coronary artery without angina pectoris; I10 Essential (primary) hypertension; E78.00 Pure hypercholesterolemia, unspecified; I25.2 Old myocardial infarction; F17.290 Nicotine dependence, other tobacco product, uncomplicated; Z95.5 Presence of coronary angioplasty implant and graft; Z79.02 Long term (current) use of antithrombotics/antiplatelets; Z79.82 Long term (current) use of aspirin; Z79.899 Other long term (current) drug therapy
CPT/HCPCS: 71045; 80048; 84484; 85025; 93005; 99284; A4216

== ENCOUNTER → 2024-01-19 | Outpatient (CLI) | payer BC, SELFPAY ==
[2023-02-16 13:02] VITALS: BMI 35.0
[2024-01-19 11:58] LABS: AST(SGOT) 17 U/L (15-37); Alanine Aminotransfer ALT/SGPT 27 U/L (16-61); Albumin, Serum 3.8 g/dL (3.2-5.0); Alkaline Phosphatase 83 U/L (45-117); Bilirubin, Direct 0.28 mg/dL (0.00-0.30); Cholesterol 133 mg/dL (200); Globulin 3.5 g/dL (2.2-4.2); High Density Lipoprotein 47 mg/dL; Protein, Total 7.3 g/dL (6.4-8.2); Triglycerides 53 mg/dL; Very Low Density Lipoprotein 11 mg/dL (5-40)
== END | disposition home or self-care (01) ==
LOC: LAB 10:51
PROVIDERS: PCP Nurse Practitioner; Referring Provider Internal Medicine Cardiovascular Disease; Visit Provider Internal Medicine Cardiovascular Disease
DX: E78.00 Pure hypercholesterolemia, unspecified (principal)
CPT/HCPCS: 36415; 80061; 80076; 84443

== ENCOUNTER → 2024-02-02 | Outpatient (CLI) | payer BC, SELFPAY ==
[2023-02-16 13:02] VITALS: BMI 35.0
--- NOTE | 2024-02-02 16:14 | STRESSREP_ITS ---
Stress Test Report Exercise myocardial perfusion stress test. 63-year-old man with a history of coronary artery disease Stress protocol: Resting EKG demonstrates normal sinus rhythm with a rate of 56 bpm resting blood pressure is 120/68 mmHg. The patient exercised according to the regular Kelton protocol for a total duration of 7 minutes and 34 seconds attaining a maximum heart rate of 133 bpm which was 83% of maximum predicted heart rate; the maximum workload was 10.4 metabolic equivalents. At rest there were no ST or T wave changes noted to suggest ischemia and at peak exercise upsloping ST changes only were noted which did not meet the criteria for ischemia. No clinical angina was noted the test was terminated due to the target heart rate being a chieved/fatigue. The peak blood pressure was 146/80 mmHg. Rate-pressure product was 16,600. Myocardial perfusion protocol. 14.6 mCi of technetium 99m sestamibi was injected at rest. The patient ex ercised according to regular Kelton protocol for total duration of 7-1/2 minutes and at peak exercise 44.1 mCi of technetium 99m sestamibi was injected stress images were obtained stress and rest images were reconstructed in comparing the short axis vertical long and horizontal long axis. Gated images were also obtained. Perfusion SPECT analysis: Review of the stress images demonstrate normal uptake of tracer noted in all areas of the myocardium. The resting images similarly demonstrate normal uptake of tracer noted in all areas of the myocardium. No areas of reversibility are noted to suggest ischemia no previous infarct was noted. Gated SPECT analysis: The gated ejection fraction is 68%. Conclusion: Normal exercise myocardial perfusion stress test at a high workload Preserved ejection fraction.
== END | disposition home or self-care (01) ==
PROVIDERS: PCP Nurse Practitioner; Referring Provider Internal Medicine Cardiovascular Disease; Visit Provider Internal Medicine Cardiovascular Disease
DX: I25.10 Atherosclerotic heart disease of native coronary artery without angina pectoris (principal); Z95.5 Presence of coronary angioplasty implant and graft
CPT/HCPCS: 78452; 93017; A9500; A4216

== ENCOUNTER → 2024-04-29 | Outpatient (CLI) | payer BC, SELFPAY ==
[2023-02-16 13:02] VITALS: BMI 35.0
[2024-04-29 10:29] LABS: AST(SGOT) 27 U/L (15-37); Alanine Aminotransfer ALT/SGPT 27 U/L (16-61); Albumin, Serum 3.6 g/dL (3.2-5.0); Alkaline Phosphatase 76 U/L (45-117); Bilirubin, Direct 0.31 mg/dL (0.00-0.30); Cholesterol 116 mg/dL (200); Globulin 3.5 g/dL (2.2-4.2); High Density Lipoprotein 40 mg/dL; Protein, Total 7.1 g/dL (6.4-8.2); Triglycerides 51 mg/dL; Very Low Density Lipoprotein 10 mg/dL (5-40)
== END | disposition home or self-care (01) ==
LOC: LAB 09:23
PROVIDERS: PCP Nurse Practitioner; Referring Provider Physician Assistant Medical; Visit Provider Physician Assistant Medical
DX: E78.00 Pure hypercholesterolemia, unspecified (principal)
CPT/HCPCS: 36415; 80061; 80076

== ENCOUNTER 2024-12-30 09:14 | Emergency (ER) | payer BC, SELFPAY ==
[2023-02-16 13:02] VITALS: BMI 35.0
[2024-12-30 09:16] VITALS: BP 127/92; PULSE 108; RESP 18; TEMP 36.6; O2SAT 95; BMI 30.6
[2024-12-30 09:27] VITALS: O2SAT 99
--- NOTE | 2024-12-30 09:32 | ED.VIS.DYS ---
HPI History of Present Illness Chief Complaint: Shortness of Breath Informant: patient Onset/Context/Timing Onset: Days (2) Context: gradual Timing: Intermittent Quality: Positive for Dyspnea on exertion Worsened by: Exertion Relieved by: Nothing Associated Symptoms subjective, chills and sweats; Negative for cough, rhinorrhea, post nasal drip, ear pain, fever, sore throat, clear sputum, white sputum, yellow sputum or green sputum Chest Pain: Positive for None Narrative Narrative: Patient presents with shortness of breath that has been getting worse over the past 2 days. Patient states it is gradually gotten worse. Patient states it comes and goes. Patient states it is worse with any exertion. Patient states nothing makes it better. Patient admits to some subjective chills and sweats. Patient admits to some generalized weakness. Patient denies any chest pain. Patient denies any cough. Patient denies any sore throat or rhinorrhea. Patient did have a recent right total knee replacement 4 weeks ago. PE Risk Factors: Positive for Recent surgery [facility] Medical History Presence of stent in coronary artery (~10/07/22) Coronary artery disease Non-ST elevated myocardial infarction (non-STEMI) Hypercholesterolemia Arthritis Tobacco user Diverticulosis of sigmoid colon Home Medications ?Medication ?Instructions ?Recorded ?Last Taken ?Type aspirin 81 mg tablet,delayed 81 mg PO BREAKFAST 30 days #30 tabs 10/08/22 10/28/22 Rx release ticagrelor 90 mg tablet (Brilinta) 90 mg PO BID #60 tabs 12/15/23 Unknown Rx atorvastatin 80 mg tablet 80 mg PO QHS #90 tabs 01/25/24 Unknown Rx nitroglycerin 0.4 mg sublingual 0.4 mg sublingual Q5M PRN CHEST 04/26/24 Unknown Rx tablet PAIN #15 tabs amlodipine 2.5 mg tablet 2.5 mg PO DAILY #90 tabs 10/25/24 Unknown Rx apixaban 5 mg tablet (Eliquis) 5 mg PO BID #74 tabs 12/30/24 Unknown Rx Allergy/AdvReac Type Severity Reaction Status Date / Time procaine (From Novocain) Allergy Anaphylaxis Verified 12/30/24 09:16 Family History Grandfather Myocardial infarction Father Myocardial infarction Surgical History History of prostatectomy History of tonsillectomy Hx of right coronary artery stent placement (~10/28/22) Presence of coronary angioplasty implant and graft (~10/07/22) Social History household members: spouse housing: house current occupational status: retired Smoking Status: Current every day smoker tobacco type: e-cigarettes how long ago did patient quit smoking: Used to smoke 2 packs of regular cigarettes every day up until about 10 yea alcohol intake: never substance use type: does not use caffeine: Yes Type: coffee Number of servings: 2 ROS ROS ED Constitutional Constitutional ED: Denies chills or fever(s) Eyes Eyes: Denies blurry vision or change in vision ENT ENT ED: Denies rhinorrhea or sore throat Cardiovascular Cardiovascular: Denies chest pain or palpitations Respiratory/Chest Respiratory/Chest: Reports dyspnea; Denies cough Gastrointestinal Gastrointestinal: Denies nausea or vomiting Genitourinary Genitourinary ED: Denies dysuria or hematuria Musculoskeletal Musculoskeletal: Denies back pain or neck pain Integumentary Denies abscess or rash Neurologic Neurologic: Denies headache(s) or weakness Allergic/Immunologic Allergic/Immunologic ED: Denies mouth swelling or urticaria EXAM Physical Exam Const Vital Signs: 12/30/24 09:16 12/30/24 09:27 12/30/24 10:15 Temperature 97.9 F Temperature Source Oral Pulse Rate 108 H 16 L Respiratory Rate 18 16 Respiratory Effort Normal Respiratory Depth Normal Respiratory Pattern Normal Blood Pressure 127/92 H 121/82 H Blood Pressure Mean 103 95 Pulse Ox 95 95 Oxygen Delivery Method Room Air Room Air Room Air 12/30/24 10:17 12/30/24 11:00 Temperature Temperature Source Pulse Rate 75 Respiratory Rate 16 Respiratory Effort Respiratory Depth Respiratory Pattern Blood Pressure 121/81 H Blood Pressure Mean 94 Pulse Ox 95 94 Oxygen Delivery Method Room Air Room Air Positive well nourished and well developed General Appearance ED: well developed and NAD HEENT Reports moist mucous membranes Neck supple, no meningeal signs and no JVD Resp normal respiratory effort and clear to auscultation bilaterally Cardio regular rate and regular rhythm GI non-tender and non-distended Palpation: soft Neuro oriented x3, CN's II-XII intact bilaterally and no sensory deficits noted Sawyer Coma Scale: document GCS findings Spontaneous Obeys Commands Oriented 15 Sensorium / Orientation: alert Speech: speech normal Motor Exam: strength 5/5 throughout Psych mental status grossly normal MDM MDM MDM Narrative Medical decision making narrative: Differential diagnosis includes pulmonary embolism, electrolyte abnormality, dehydration, cardiac dysrhythmia, cardiac ischemia, pneumonia, bronchitis, viral illness. EKG will be obtained to assess for cardiac dysrhythmia and cardiac ischemia. CT of the chest will be obtained to assess for pulmonary embolism. CBC will be obtained to assess for leukocytosis or anemia. Basic metabolic profile will be obtained to assess for electrolyte abnormality and renal function. High-sensitivity troponin will be obtained to assess for cardiac ischemia. 2-hour repeat high-sensitivity troponin will be obtained to assess for ongoing cardiac ischemia. PT with INR and PTT will be obtained to assess for coagulopathy. Lab Data Attestation: I reviewed the patient's lab results. Lab results narrative: CBC was reviewed and was within normal limits. Basic metabolic profile was reviewed. Glucose was slightly elevated at 140. The remainder is within normal limits. Initial high-sensitivity troponin was reviewed and was normal at 21. PT with INR and PTT were reviewed and were within normal limits. Labs: Laboratory Results - last 24 hr 12/30/24 09:30 WBC 9.6 RBC 5.10 Hgb 14.9 Hct 45.5 MCV 89.2 MCH 29.2 MCHC 32.7 RDW Std Deviation 46.5 H RDW Coeff of Josr 14.3 Plt Count 290 MPV 9.2 Immature Gran % (Auto) 0.600 Neut % (Auto) 65.8 Lymph % (Auto) 20.1 [place] % (Auto) 9.5 Eos % (Auto) 3.2 Baso % (Auto) 0.8 Absolute Neuts (auto) 6.3 Absolute Lymphs (auto) 1.92 Nucleated RBC % 0 PT 13.9 INR 1.1 APTT 26.3 Sodium 139 Potassium 4.3 Chloride 101 Carbon Dioxide 23.3 Anion Gap 14 BUN 21 H Creatinine 0.78 Estim Creat Clear Calc 121.62 Est GFR (MDRD) Non-Af 101 BUN/Creatinine Ratio 26.7 H Glucose 140 H Calcium 9.4 Troponin T High Sens 21 Radiography Diagnostic Testing: Clinical Impression(s) from Imaging Studies Chest CTA 12/30/24 10:17 IMPRESSION: Multiple bilateral pulmonary emboli involving the distal portion of the right and left pulmonary arteries extending to multiple branches of the upper and lower lobes. Red Alert: Multiple bilat pulm emboli The critical information above was relayed directly by me by telephone to Gary De Dios on 12/30/2024 at 11:14 am with readback verification. Reading Location: [id number] CTA of the chest was obtained. There are multiple bilateral pulmonary emboli involving the right and left pulmonary arteries. There is no evidence of right heart strain. This was interpreted by the radiologist and was also independently reviewed by myself. EKG Initial EKG: Attestation: I personally reviewed and interpreted this EKG as follows: Interpretation: Sinus Rhythm (83) and No Acute Injury Pattern Comments: EKG was obtained. On my independent interpretation, it showed a normal sinus rhythm with a rate of 83. DC interval, QRS interval, and QTc intervals were all normal. Dresser was normal. There are no acute ST or T wave changes. Prior EKG tracings: available for review Prior: Unchanged (12/05/2023) Treatment and Re-Evaluation :: Patient was given a dose of aspirin. Patient was advised of his findings. Patient's vital signs are stable. Patient was started on Eliquis. Patient was given a prescription for Eliquis. Patient was instructed to follow-up with his primary care physician in 5 to 7 days. Patient was also instructed to follow-up with his orthopedic surgeon as scheduled. Patient was instructed to return if worse in any way. Patient understood and was agreeable with the plan. All questions were answered. Discharge Plan Triage Chief Complaint: Shortness of Breath ED Provider: Gary De Dios Dx/Rx/DC Orders Clinical Impression: Pulmonary emboli, Coronary artery disease, Nicotine vapor product user Instructions: Pulmonary Embolism Dc Prescriptions: New Eliquis 5 mg tablet 5 mg PO BID Qty: 74 0RF Rx Instructions: 10 mg twice a day for the first week. Then 5 mg twice a day. No Action aspirin 81 mg Tablet,Delayed Release (Dr/Ec) 81 mg PO BREAKFAST 30 Days Qty: 30 4RF Brilinta 90 mg tablet 90 mg PO BID Qty: 60 11RF atorvastatin 80 mg tablet 80 mg PO QHS Qty: 90 3RF nitroglycerin 0.4 mg tablet, sublingual 0.4 mg sublingual Q5M PRN (Reason: CHEST PAIN) Qty: 15 3RF amlodipine 2.5 mg tablet 2.5 mg PO DAILY Qty: 90 3RF Primary Care Provider: Nate Gonzalez Referrals: Rylee Quinones DOWEL MACHINE OPERATOR, DOWEL MACHINE OPERATOR-C [Non-Staff] - 5-7 Days Print Language: Wolof Disposition Disposition: Home, Self Care
[2024-12-30 10:15] VITALS: BP 121/82; PULSE 16; RESP 16; O2SAT 95
[2024-12-30 10:17] VITALS: O2SAT 95
--- NOTE | 2024-12-30 10:17 | CT_ITS ---
PROCEDURE: CTA CHEST W/WO CONTRAST 12/30/2024 REASON FOR EXAM: DYSPNEA 3 day history of weakness shortness of breath and fever. TECHNIQUE: CTA CHEST W/WO CONTRAST Multiplanar Sagittal and Coronal images were obtained. 3D post processing was performed CONTRAST: Isovue 370 VOLUME: 100 mL One or more dose reduction techniques were used (e.g., Automated exposure control, adjustment of the mA and/or kV according to patient size, use of iterative reconstruction technique). RADIATION DOSE SUMMARY: CTDlvol: 12.3 mGy DLP: 517.21 mGycm COMPARISON: None FINDINGS: Hardware: None Lymph nodes: No significant lymph nodes are seen. Heart: The heart is not enlarged. Coronary artery calcification. Thoracic Aorta: Unremarkable. Pulmonary Vessels: There are multiple intraluminal filling defects in both right and left pulmonary artery and branches involving both the upper and lower lobes. Most Proximal Level of Embolus (if embolus present): In the distal portion of the right pulmonary artery and distal portion of the left pulmonary artery. Lungs and Airways: The lungs are clear. No focal infiltrate or mass is seen. Pleura: No pleural effusion. Upper Abdomen: Unremarkable Bones: Bone windows are unremarkable. CT/CTA Chest W/WO Contrast IMPRESSION: Multiple bilateral pulmonary emboli involving the distal portion of the right a nd left pulmonary arteries extending to multiple branches of the upper and lower lobes. Red Alert: Multiple bilat pulm emboli The critical information above was relayed directly by me by telephone to Gary Mejia on 12/30/2024 at 11:14 am with readback verification. Reading Location: [id number]
--- NOTE | 2024-12-30 10:17 | EKG12_ITS ---
Test Reason : SOB Blood Pressure : */* mmHG Vent. Rate : 83 BPM Atrial Rate : 83 BPM P-R Int : 182 ms QRS Dur : 82 ms QT Int : 360 ms P-R-T Axes : 75 23 44 degrees QTcB Int : 423 ms Normal sinus rhythm Normal ECG Confirmed by RICHARD BATES, KUMAR ([id number]), packaging materials inspector VANESSA ROGER ([id number]) on 01/02/2025 7:31:56 AM Referred By: JAEL Confirmed By: KUMAR RAMOS MD
[2024-12-30 10:27] LABS: Hematocrit 45.5 % (40-54); Hemoglobin 14.9 g/dL (13.0-16.5); Immature Granulocytes Count 0.060 X10^3/uL (0.0-0.0); Mean Corp Hgb Conc 32.7 g/dL (32-36); Mean Corpuscular Volume 89.2 fL (80-94); Mean Platelet Vol. 9.2 fl (6.2-12.0); NRBC Flagged by Analyzer 0 % (0-5); Platelet Count 290 K/mm3 (150-450); RBC Distribution Width CV 14.3 % (11.6-14.6); RBC Distribution Width SD 46.5 fl (35.1-43.9); Red Blood Count 5.10 M/mm3 (4.6-6.2); White Blood Count 9.6 K/mm3 (4.4-11.0)
[2024-12-30 10:36] LABS: Prothrombin Time (Protime)PT. 13.9 SECONDS (11.7-14.9)
[2024-12-30 10:37] LABS: Partial Thromboplast Time 26.3 Seconds (24.1-36.2)
[2024-12-30 11:00] VITALS: BP 121/81; PULSE 75; RESP 16; O2SAT 94
[2024-12-30 11:22] LABS: Anion Gap 14 (5-15); BUN 21 mg/dL (4-19); BUN/Creat Ratio 26.7 RATIO (10-20); Calcium,Total 9.4 mg/dL (7.6-11.0); Carbon Dioxide 23.3 mmol/L (21.0-32.0); Chloride 101 mmol/L (98-108); Estimated Creatinine Clearance 121.62 ml/min (50-250); Glucose 140 mg/dL (70-99); Potassium 4.3 mmol/L (3.3-5.1); Troponin T High Sensitivity 21 ng/L (<=22)
[2024-12-30] MEDS: APIXABAN 5 MG TABLET 10 MG PO (11:55)
[2024-12-30 12:13] LABS: Troponin T High Sens 2 HR 25 ng/L (<=22)
[2024-12-30 12:16] VITALS: BP 138/74; PULSE 71; RESP 16; TEMP 36.6; O2SAT 94
== END 2024-12-30 12:17 | disposition home or self-care (01) ==
PROVIDERS: Emergency Provider Emergency Medicine; PCP Internal Medicine; Visit Provider Emergency Medicine
DX: I26.99 Other pulmonary embolism without acute cor pulmonale (principal); R68.83 Chills (without fever); E78.00 Pure hypercholesterolemia, unspecified; I25.10 Atherosclerotic heart disease of native coronary artery without angina pectoris; F17.290 Nicotine dependence, other tobacco product, uncomplicated; Z79.82 Long term (current) use of aspirin; Z79.02 Long term (current) use of antithrombotics/antiplatelets; Z79.899 Other long term (current) drug therapy; Z96.651 Presence of right artificial knee joint; I25.2 Old myocardial infarction; Z95.5 Presence of coronary angioplasty implant and graft
CPT/HCPCS: 71275; 80048; 84484; 85025; 85610; 85730; 93005; 99284; Q9967; A4216